=== PATIENT | male | born 1930 | race Hispanic/Latino ===

== ENCOUNTER 2016-08-06 16:15 | Inpatient (IN) | payer MEDICARE ==
[2016-08-06 17:12] LABS: Eosinophils % (Auto) 1.3 % (0.0-4.3); Mean Corpuscular HGB Conc 33 % (32-34); Mean Corpuscular Hemoglobin 31 pg (28-32); Mean Corpuscular Volume 94 fl (84-94); Platelet Count 285 K/mm3 (140-440); Red Cell Distribution Width 15.1 % (13.2-15.2); White Blood Count 8.5 K/mm3 (4.5-11.0)
[2016-08-06 17:42] LABS: BUN/Creatinine Ratio 18.88; Blood Urea Nitrogen 17 mg/dL (9-20); Calcium 9.1 mg/dL (8.4-10.2); Carbon Dioxide 25 mmol/L (22-30); Chloride 105.8 mmol/L (98-107); Glucose 92 mg/dL (75-100); Potassium 4.4 mmol/L (3.6-5.0); Sodium 143 mmol/L (137-145)
[2016-08-06] MEDS ORDERED: XYLOCAINE 1% 20 mL ONE (17:49)
--- NOTE | 2016-08-06 17:55 | Emergency Department Report ---
HPI - General Chief Complaint: Dyspnea/Respdistress Time Seen by Provider: 08/06/16 17:41 - HPI HPI: Room 18 The patient is an 85-year-old male presenting with chief complaint of shortness of breath. When asked when they come to the emergency department patient states "I wasn't breathing good." When asked when it began the patient states "a few weeks ago." The patient had a chest x-ray performed at half-way which was read as "50% pneumothorax in the left thorax immediate clinical attention and intervention required." Location: Lungs Duration: [see above] Quality: Shortness of Breath Severity: Moderate Modifying factors: [see above] Context: [see above] Mode of transportation: [not driving] ED Past Medical Hx - Past Medical History Previous Medical History?: Yes Hx Seizures: Yes Hx Psychiatric Treatment: Yes (Depression) Hx COPD: Yes - Surgical History Past Surgical History?: No - Family History Family history: no significant - Social History Smoking Status: Former Smoker Substance Use Type: None ED Review of Systems ROS: Stated complaint: POSSIBLE PNEUMOTHORAX Other details as noted in HPI Comment: All other systems reviewed and negative Constitutional: denies: chills, fever Eyes: denies: eye pain, eye discharge, vision change ENT: denies: ear pain, throat pain Respiratory: shortness of breath Cardiovascular: denies: chest pain, palpitations Endocrine: no symptoms reported Gastrointestinal: denies: abdominal pain, nausea, diarrhea Genitourinary: denies: urgency, dysuria Musculoskeletal: denies: back pain, joint swelling, arthralgia Skin: denies: rash, lesions Neurological: denies: headache, weakness, paresthesias Psychiatric: denies: anxiety, depression Hematological/Lymphatic: denies: easy bleeding, easy bruising Physical Exam - Physical Exam Physical Exam: GENERAL: The patient is a thin elderly male lying on stretcher appearing slightly labored respirations HEENT: Normocephalic. Atraumatic. Extraocular motions are intact. Patient has moist mucous membranes. NECK: Supple. Trachea midline CHEST/LUNGS: Slightly decreased breath sounds on the left. Increased work of breathing HEART/CARDIOVASCULAR: Regular. There is no tachycardia. There is no gallop rub or murmur. ABDOMEN: Abdomen is soft, nontender. Patient has normal bowel sounds. There is no abdominal distention. SKIN: There is no rash. There is no edema. There is no diaphoresis. NEURO: The patient is awake, alert, and oriented. The patient is cooperative. The patient has normal speech MUSCULOSKELETAL: There is no evidence of acute injury. - Chest Tube Chest Tube Location: forth interspace Size of Lithuanian Tube (cm): 0 (Heimlich) Chest Tube Procedure: betadine prep Anesthesia: 1% Lidocaine w/ Epi Volume Anesthetic (ccs): 4 [place] of Air [place]: Yes Number of Attempts: 1 Tube Sutured to Skin: Yes Post Procedure CXR?: Yes ED Medical Decision Making - Lab Data Result diagrams: 08/06/16 16:42 08/06/16 16:42 Laboratory Tests 08/06/16 08/06/16 16:42 16:42 WBC 8.5 RBC 4.80 Hgb 15.0 Hct 45.0 MCV 94 MCH 31 MCHC 33 RDW 15.1 Plt Count 285 Lymph % (Auto) 14.1 [place] % (Auto) 11.0 H Eos % (Auto) 1.3 Baso % (Auto) 1.0 Lymph # 1.2 [place] # 0.9 H Eos # 0.1 Baso # 0.1 Seg Neutrophils % 72.6 H Seg Neutrophils # 6.1 Sodium 143 Potassium 4.4 Chloride 105.8 Carbon Dioxide 25 Anion Gap 17 BUN 17 Creatinine 0.9 Estimated GFR > 60 BUN/Creatinine Ratio 18.88 Glucose 92 Calcium 9.1 Troponin T < 0.010 - Radiology Data Radiology results: image reviewed (chest x-ray #1, chest x-ray #2) interpreted by me: Chest x-ray #1-large left pneumothorax Chest x-ray #2-Heimlich enters into the left chest and orients downward. Improvement/resolution of left pneumothorax. - Differential Diagnosis spontaneous pneumothorax Critical Care Time: Yes Critical care time in (mins) excluding proc time.: 30 Critical care attestation.: If time is entered above; I have spent that time in minutes in the direct care of this critically ill patient, excluding procedure time. ED Disposition Clinical Impression: Spontaneous pneumothorax, Shortness of breath Disposition: OP ADMITTED IP TO THIS HOSP Is pt being admited?: Yes Does the pt Need Aspirin: No Condition: Serious Referrals: PRIMARY CARE, [Primary Care Provider] - 3-5 Days Time of Disposition: 19:08 (hospitalist paged)
[2016-08-06 18:13] LABS: Anion Gap 17 mmol/L
[2016-08-06] MEDS ORDERED: XYLOCAINE 1%/ EPI 1:100,000 INFILTRATI ONE (18:14)
[2016-08-06] MEDS ORDERED: AMIDATE IV ONE ×2 (18:15→18:53)
[2016-08-06] MEDS ORDERED: ATROVENT IH SCH (20:00)
[2016-08-06] MEDS ORDERED: PROVENTIL IH SCH (20:00)
--- NOTE | 2016-08-06 21:34 | Admit Criteria Form ---
Admission Criteria Documentation: PNEUMOTHORAX Clinical Indications for Admission to Inpatient Care (Place 'X' for any and all applicable criteria): Admission for ANY ONE of the following (1),(2): [ ]I. Pneumothorax caused by associated lung disease (eg, COPD, cystic fibrosis, lung cancer, AIDS)(6): [ ]II. Recurrent episode of pneumothorax9 [ ]III. Traumatic pneumothorax (10)(11)(12) [ ]IV. Tension pneumothorax [ ]V. Hypotension [ ]. Respiratory distress [ ]VII. Pneumothorax exacerbating significant comorbidity (eg, heart failure) [ X]VIII. Inpatient admission required rather than observation care (see Pneumothorax: Observation Care guideline as appropriate) because of ANY ONE of the following (13)(14) [X ]a) Symptomatic pneumothorax that is progressive or persistent [ ]b) Infection identified (eg, pneumonia) that requires inpatient management [ ]c) Severe pain requiring acute inpatient management [ ]d) Supplemental O2 or respiratory therapy for over 24 hrs that are performable only in acute inpatient setting [ ]e) Chest tube placement with active evacuation (eg, suction, drainage) (15) [ ]f) Epidural analgesia [ ]g) Other condition, treatment or monitoring requiring inpatient admission Extended stay beyond goal length of stay may be needed for (24) [ ]a) Secondary pneumothorax [ ]b) Pneumothorax assoc with trauma(eg, multiple fractured ribs) [ ]c) Recurrent episode of primary spontaneous pneumothorax. [ ]d) Older patients [ ]e) Tension pneumothorax [ ]f) Pulmonary edema [ ]g) Persistent air leak The original [employer] content created by [employer] has been revised. The portions of the content which have been revised are identified through the use of italic text or in bold, and [facility] has neither reviewed nor approved the modified material. All other unmodified content is copyright [employer]. Please see references footnoted in the original [employer] edition 2016 Admission Criteria Met: Yes
[2016-08-06 21:53] LABS: Alanine Aminotransferase 9 units/L (7-56); Albumin 2.5 g/dL (3.9-5); Albumin/Globulin Ratio 0.6 %; Alkaline Phosphatase 80 units/L (35-129); Bilirubin,Total 0.5 mg/dL (0.1-1.2); Blood Urea Nitrogen 16 mg/dL (9-20); Calcium 8.3 mg/dL (8.4-10.2); Carbon Dioxide 19 mmol/L (22-30); Chloride 103.4 mmol/L (98-107); Glucose 92 mg/dL (75-100); Potassium 4.8 mmol/L (3.6-5.0); Sodium 135 mmol/L (137-145); Total Protein 6.9 g/dL (6.3-8.2)
[2016-08-06 22:33] LABS: Anion Gap 17 mmol/L
--- NOTE | 2016-08-07 | History and Physical Report ---
History of Present Illness Date of examination: 08/06/16 Date of admission: 08/06/16 19:50 Chief complaint: Shortness of breath. History of present illness: Patient is an 85-year-old gentleman was a reasonable risk to nursing facility. Started having cough with shortness of breath a few days prior. Chest x-ray was done. 50% pneumothorax identified in the left lung. We will brought emergency department of [facility] Shows left-sided pneumothorax post chest tube was placed. Carotids on the windowsill. Shortness of breath improved. Hypoxia that was observed on admission improved also. Past History Past Medical History: COPD, other (dementia, depression) Past Surgical History: No surgical history Social history: denies: smoking, alcohol abuse, IV drug use Family history: hypertension Medications and Allergies Allergies Allergy/AdvReac Type Severity Reaction Status Date / Time No Known Allergies Allergy Unverified 08/06/16 16:22 Home Medications Medication Instructions Recorded Confirmed Last Taken Type Calcium Carbonate/Vitamin D3 1 tab PO TID 08/06/16 08/06/16 Unknown History [Calcium 500 + D Tablet] Depakote ER 125 mg PO BID 08/06/16 08/06/16 Unknown History Fluticasone/Vilanterol [Breo 2 puff INHALATION DAILY 08/06/16 08/06/16 Unknown History Ellipta 100-25 Mcg INH] LORazepam [Ativan] 1 tab PO Q8H PRN 08/06/16 08/06/16 Unknown History Memantine HCl [Namenda] 10 mg PO BID 08/06/16 08/06/16 Unknown History Mirtazapine 15 mg PO QHS 08/06/16 08/06/16 Unknown History Multivitamin with Iron 1 each PO DAILY 08/06/16 08/06/16 Unknown History [Multivitamins with Iron] Potassium Chloride [K-Dur] 20 meq PO BID 08/06/16 08/06/16 Unknown History amLODIPine [Norvasc] 10 mg PO DAILY 08/06/16 08/06/16 Unknown History Active Meds: Active Medications Albuterol (Proventil) 2.5 mg IH Q6HRT [facility] Last Admin: 08/06/16 22:49 Dose: Not Given Enoxaparin Sodium (Lovenox) 40 mg SUB-Q QDAY [facility] Azithromycin 500 mg/ Sodium (Chloride) 250 mls @ 250 mls/hr IV Q24HR [facility] PRN Reason: Protocol Ipratropium [place] (Atrovent) 0.5 mg IH Q6HRT [facility] Last Admin: 08/06/16 22:49 Dose: Not Given Methylprednisolone Sodium Succinate (Solu-Medrol) 40 mg IV Q8HR [facility] Last Admin: 08/06/16 22:29 Dose: 40 mg Review of Systems Constitutional: weight loss Ears, nose, mouth and throat: ear pain, no ear discharge, no tinnitis, no decreased hearing Cardiovascular: chest pain, no orthopnea, no palpitations, no rapid/irregular heart beat, no edema Respiratory: no cough, no cough with sputum, no excessive sputum, no hemoptysis Gastrointestinal: no nausea, no vomiting, no diarrhea Neurological: migraines, no headaches, no convulsions, no aphasia Psychiatric: no anxiety, no memory loss Endocrine: no cold intolerance, no heat intolerance, no polyphagia, no excessive thirst Hematologic/Lymphatic: no easy bruising, no easy bleeding Exam - Constitutional Vitals: Temp Pulse Resp BP Pulse Ox 79 20 100/43 92 08/06/16 23:00 08/06/16 23:00 08/06/16 23:00 08/06/16 23:00 General appearance: Present: mild distress - EENT Eyes: Present: PERRL, EOM intact ENT: no hearing intact, no clear oral mucosa - Neck Neck: Present: supple, normal ROM - Respiratory Respiratory: bilateral: diminished (on the left), rales, rhonchi - Cardiovascular Rhythm: regular Heart Sounds: Present: S1 & S2 - Extremities Extremities: no ischemia, pulses intact, No edema - Abdominal General gastrointestinal: Present: soft, non-tender, non-distended - Integumentary Integumentary: Present: clear, warm - Musculoskeletal Musculoskeletal: generalized weakness - Psychiatric Psychiatric: other (consult was) - Neurologic Neurologic: CNII-XII intact Results - Labs CBC & Chem 7: 08/06/16 16:42 08/06/16 20:16 Labs: Abnormal lab results 08/06/16 Range/Units 20:16 Sodium 135 L D (137-145) mmol/L Carbon Dioxide 19 L (22-30) mmol/L Calcium 8.3 L (8.4-10.2) mg/dL Albumin 2.5 L (3.9-5) g/dL Assessment and Plan - Patient Problems (1) Shortness of breath Diagnosis Date: 08/07/16 Current Visit: Yes Status: Acute Plan to address problem: Commence albuterol Atrovent. (2) Spontaneous pneumothorax Diagnosis Date: 08/07/16 Current Visit: Yes Status: Acute Plan to address problem: Left chest tube inserted and connected to under water seal (3) COPD with exacerbation Diagnosis Date: 08/07/16 Current Visit: Yes Status: Acute Plan to address problem: Continue with bronchodilators. Will add Levaquin 500 mg IV daily
[2016-08-07] MEDS ORDERED: PROVENTIL IH PRN (01:53)
[2016-08-07] MEDS: DUONEB 0.5 MG-3 MG/3 ML SOLN IH SCH ×3 (02:30→13:45)
[2016-08-07] MEDS ORDERED: CALCIUM CARBONATE PO SCH (08:00)
[2016-08-07] MEDS ORDERED: VITAMIN D3 PO SCH (08:00)
[2016-08-07] MEDS: PULMICORT IH SCH (08:22)
[2016-08-07] MEDS: BROVANA NEBU IH SCH (08:22)
--- NOTE | 2016-08-07 09:24 | XRay Report ---
AP CHEST AT 1652 HOURS: HISTORY: Difficulty in breathing, pneumothorax. FINDINGS: This exam is just presented to me for interpretation. There are no previous at this facility. A large left pneumothorax is identified which measures up to 5-6 cm in thickness at the left lung base. The pneumothorax is estimated at 40%. No right pneumothorax. Moderate bibasilar atelectatic changes are noted. There may be a small right pleural effusion. Heart size and pulmonary vascularity are within normal limits. IMPRESSION: 1. Large left pneumothorax, as described. 2. Bibasilar atelectasis. 3. Possible small right pleural effusion. These findings were apparently recognized by the ER physician although there are no notes in the PACS system.
--- NOTE | 2016-08-07 09:24 | XRay Report ---
AP CHEST AT 1857 HOURS: HISTORY: Left pneumothorax, left chest tube placement. FINDINGS: A Heimlich chest tube has been inserted since 1652 hours which terminates at the level of the left hemidiaphragm. There is complete or near-complete resolution of the left pneumothorax. Bibasilar atelectasis and small right pleural effusion are unchanged. Heart size remains within normal limits. IMPRESSION: Left chest tube placement, as described, with no significant residual left pneumothorax.
[2016-08-07] MEDS ORDERED: ZITHROMAX 500 MG in NACL 0.9% 250ML 250 ML IV SCH (10:00)
[2016-08-07] MEDS ORDERED: DEPAKOTE 125 MG PO SCH (10:00)
[2016-08-07] MEDS ORDERED: LEVAQUIN 500MG/100ML 100 ML IV SCH (10:00)
[2016-08-07] MEDS ORDERED: NON-FORMULARY (Memantine Hcl [Namenda] 10 MG) PO SCH (10:00)
[2016-08-07] MEDS ORDERED: FLUTICASONE INHALATION SCH (10:00)
[2016-08-07] MEDS ORDERED: LEVAQUIN 500MG/100ML 100 ML IV ONE (10:00)
[2016-08-07] MEDS ORDERED: VILANTEROL INHALATION SCH (10:00)
[2016-08-07] MEDS: OYSCO D 500 MG-200 UNIT PO SCH ×3 (10:04→22:16)
[2016-08-07] MEDS: NAMENDA XR PO SCH (10:05)
[2016-08-07] MEDS: LOVENOX SUB-Q SCH ×2 (10:06→19:53)
--- NOTE | 2016-08-07 13:24 | Consultation ---
History of Present Illness Consult date: 08/07/16 Requesting physician: TERI VARGAS Reason for consult: pneumothorax History of present illness: 85 yo admitted with increased SOB and some L sided chest pain. He is a profoundly poor historian. States SOB is better s/p L sided chest pain placed in ED. Denies fevers, chills, cough, sputum. Active Medications Albuterol (Proventil) 2.5 mg IH Q3HRT PRN PRN Reason: Shortness Of Breath Albuterol/Ipratropium (Duoneb 0.5 Mg-3 Mg/3 Ml Soln) 1 ampul IH Q6HRT [facility] Last Admin: 08/07/16 13:45 Dose: 1 ampul Arformoterol Tartrate (Brovana Nebu) 15 mcg IH Q12HRT [facility] Last Admin: 08/07/16 08:22 Dose: Not Given Budesonide (Pulmicort) 0.5 mg IH Q12HRT [facility] Last Admin: 08/07/16 08:22 Dose: 0.5 mg Calcium/Vitamin D ([place] D 500 Mg-200 Unit) 1 each PO TID [facility] Last Admin: 08/07/16 14:12 Dose: 1 each Divalproex Sodium (Depakote Dr) 125 mg PO BID [facility] Last Admin: 08/07/16 10:05 Dose: 125 mg Enoxaparin Sodium (Lovenox) 40 mg SUB-Q QDAY [facility] Last Admin: 08/07/16 10:06 Dose: 40 mg Levofloxacin/Dextrose (Levaquin 250mg/50ml) 50 mls @ 50 mls/hr IV Q24HR [facility] PRN Reason: Protocol Memantine (Namenda Xr) 28 mg PO DAILY [facility] Last Admin: 08/07/16 10:05 Dose: 28 mg Methylprednisolone Sodium Succinate (Solu-Medrol) 40 mg IV Q8HR [facility] Last Admin: 08/07/16 14:13 Dose: 40 mg Mirtazapine (Remeron) 15 mg PO QHS [facility] Past History Past Medical History: COPD, other (dementia, depression) Past Surgical History: No surgical history Social history: other (Resided in NH/SNF). denies: smoking, alcohol abuse, prescription drug abuse, IV drug use Family history: hypertension Medications and Allergies Allergies Allergy/AdvReac Type Severity Reaction Status Date / Time No Known Allergies Allergy Unverified 08/06/16 16:22 Home Medications Medication Instructions Recorded Confirmed Last Taken Type Calcium Carbonate/Vitamin D3 1 tab PO TID 08/06/16 08/06/16 Unknown History [Calcium 500 + D Tablet] Depakote ER 125 mg PO BID 08/06/16 08/06/16 Unknown History Fluticasone/Vilanterol [Breo 2 puff INHALATION DAILY 08/06/16 08/06/16 Unknown History Ellipta 100-25 Mcg INH] LORazepam [Ativan] 1 tab PO Q8H PRN 08/06/16 08/06/16 Unknown History Memantine HCl [Namenda] 10 mg PO BID 08/06/16 08/06/16 Unknown History Mirtazapine 15 mg PO QHS 08/06/16 08/06/16 Unknown History Multivitamin with Iron 1 each PO DAILY 08/06/16 08/06/16 Unknown History [Multivitamins with Iron] Potassium Chloride [K-Dur] 20 meq PO BID 08/06/16 08/06/16 Unknown History amLODIPine [Norvasc] 10 mg PO DAILY 08/06/16 08/06/16 Unknown History Active Meds: Active Medications Albuterol (Proventil) 2.5 mg IH Q3HRT PRN PRN Reason: Shortness Of Breath Albuterol/Ipratropium (Duoneb 0.5 Mg-3 Mg/3 Ml Soln) 1 ampul IH Q6HRT [facility] Last Admin: 08/07/16 08:21 Dose: 1 ampul Arformoterol Tartrate (Brovana Nebu) 15 mcg IH Q12HRT [facility] Last Admin: 08/07/16 08:22 Dose: Not Given Budesonide (Pulmicort) 0.5 mg IH Q12HRT [facility] Last Admin: 08/07/16 08:22 Dose: 0.5 mg Calcium/Vitamin D ([place]ys[place] D 500 Mg-200 Unit) 1 each PO TID [facility] Last Admin: 08/07/16 10:04 Dose: 1 each Divalproex Sodium (Depakote Dr) 125 mg PO BID [facility] Last Admin: 08/07/16 10:05 Dose: 125 mg Enoxaparin Sodium (Lovenox) 40 mg SUB-Q QDAY [facility] Last Admin: 08/07/16 10:06 Dose: 40 mg Levofloxacin/Dextrose (Levaquin 250mg/50ml) 50 mls @ 50 mls/hr IV Q24HR [facility] PRN Reason: Protocol Memantine (Namenda Xr) 28 mg PO DAILY [facility] Last Admin: 08/07/16 10:05 Dose: 28 mg Methylprednisolone Sodium Succinate (Solu-Medrol) 40 mg IV Q8HR [facility] Last Admin: 08/07/16 06:12 Dose: 40 mg Mirtazapine (Remeron) 15 mg PO QHS [facility] Review of Systems All systems: negative (Neg x 10 systems except as noted in HPI) Physical Examination Vital signs: Vital Signs Pulse Ox 94 08/06/16 16:20 General appearance: no acute distress, alert, other (cachectic) Eyes: non-icteric ENT: oropharynx moist Neck: supple Effort: normal Ascultation: Bilateral: diminished breath sounds (bases) Cardiovascular: regular rate and rhythm (no mrg) Gastrointestinal: normoactive bowel sounds, soft, non-tender, non-distended Integumentary: normal Extremities: no cyanosis, no edema Musculoskeletal: no deformities normal mental status (Appears confused; alert), non-focal exam, pupils equal and round mood appropriate, affect normal Results - Laboratory Findings CBC and BMP: 08/07/16 15:44 08/06/16 20:16 Abnormal lab findings: Abnormal Labs 08/06/16 20:16 Sodium 135 L D Carbon Dioxide 19 L Calcium 8.3 L Albumin 2.5 L - Diagnostic Findings Chest x-ray: report reviewed, image reviewed Assessment and Plan Imp: 1. COPD/centrilobular emphysema per history, with ? exacerbation 2. Spontaneous PTX, presumed due to COPD 3. Cachexia 4. Dementia, ? Alzheimer's 5. Pleural effusions, r/o CHF/pulm HTN Rec: 1. Leave CT to suction 2. CXR in AM 3. Taper steroids 4. Pleural effusions noted on CXR; check BNP and Echo 5. Consider nutrition evaluation 6. Will follow Plan of care reviewed w/ patient, he understands/agrees Thanks kindly for the consult.
[2016-08-07 16:06] LABS: Hematocrit 41.1 % (35.5-45.6); Hemoglobin 13.4 gm/dl (11.8-15.2); Mean Corpuscular HGB Conc 33 % (32-34); Mean Corpuscular Hemoglobin 31 pg (28-32); Mean Corpuscular Volume 93 fl (84-94); Platelet Count 258 K/mm3 (140-440); Red Blood Count 4.41 M/mm3 (3.65-5.03); Red Cell Distribution Width 14.9 % (13.2-15.2); White Blood Count 7.3 K/mm3 (4.5-11.0)
--- NOTE | 2016-08-07 16:55 | Progress Note ---
Assessment and Plan Assessment and plan: 1. Spontaneous pneumothorax Left chest tube inserted and connected to under water seal serial cxr to assess for resolution (2) COPD with exacerbation Continue with bronchodilators, steroids and abx. 3. Bradycardia obtain 12 EKG, cardiology consult History Interval history: Denies sob, wheezing or cough Hospitalist Physical - Physical exam Narrative exam: General: Patient appears well in no distress HEENT: MMM, EOMI cardiac: S1-S2 heard lungs: Clear to auscultation abdomen: soft, nontender, nondistended bowel sounds positive extremities: no edema clubbing or cyanosis Skin: no rash or lesion Neuro: no focal deficit Psych: appropriate behavior and mood, cognition intact - Constitutional Vitals: Temp Pulse Resp BP Pulse Ox 97.5 F L 45 L 18 126/58 98 08/07/16 13:36 08/07/16 13:57 08/07/16 13:57 08/07/16 13:36 08/07/16 13:36 General appearance: Present: mild distress Results - Labs CBC & Chem 7: 08/07/16 15:44 08/06/16 20:16 Labs: Laboratory Last Values WBC 7.3 K/mm3 (4.5-11.0) 08/07/16 15:44 RBC 4.41 M/mm3 (3.65-5.03) 08/07/16 15:44 Hgb 13.4 gm/dl (11.8-15.2) 08/07/16 15:44 Hct 41.1 % (35.5-45.6) 08/07/16 15:44 MCV 93 fl (84-94) 08/07/16 15:44 MCH 31 pg (28-32) 08/07/16 15:44 MCHC 33 % (32-34) 08/07/16 15:44 RDW 14.9 % (13.2-15.2) 08/07/16 15:44 Plt Count 258 K/mm3 (140-440) 08/07/16 15:44 Lymph % (Auto) 14.1 % (13.4-35.0) 08/06/16 16:42 [place] % (Auto) 11.0 % (0.0-7.3) H 08/06/16 16:42 Eos % (Auto) 1.3 % (0.0-4.3) 08/06/16 16:42 Baso % (Auto) 1.0 % (0.0-1.8) 08/06/16 16:42 Lymph # 1.2 K/mm3 (1.2-5.4) 08/06/16 16:42 [place] # 0.9 K/mm3 (0.0-0.8) H 08/06/16 16:42 Eos # 0.1 K/mm3 (0.0-0.4) 08/06/16 16:42 Baso # 0.1 K/mm3 (0.0-0.1) 08/06/16 16:42 Seg Neutrophils % [employer] 08/07/16 15:44 Seg Neutrophils # 6.1 K/mm3 (1.8-7.7) 08/06/16 16:42 Sodium 135 mmol/L (137-145) L D 08/06/16 20:16 Potassium 4.8 mmol/L (3.6-5.0) 08/06/16 20:16 Chloride 103.4 mmol/L (98-107) 08/06/16 20:16 Carbon Dioxide 19 mmol/L (22-30) L 08/06/16 20:16 Anion Gap 17 mmol/L 08/06/16 20:16 BUN 16 mg/dL (9-20) 08/06/16 20:16 Creatinine 0.8 mg/dL (0.8-1.5) 08/06/16 20:16 Estimated GFR > 60 ml/min 08/06/16 20:16 BUN/Creatinine Ratio 20.00 % 08/06/16 20:16 Glucose 92 mg/dL (75-100) 08/06/16 20:16 Calcium 8.3 mg/dL (8.4-10.2) L 08/06/16 20:16 Total Bilirubin 0.5 mg/dL (0.1-1.2) 08/06/16 20:16 AST 40 units/L (5-40) 08/06/16 20:16 ALT 9 units/L (7-56) 08/06/16 20:16 Alkaline Phosphatase 80 units/L (35-129) 08/06/16 20:16 Troponin T < 0.010 ng/mL (0.00-0.029) 08/06/16 16:42 Total Protein 6.9 g/dL (6.3-8.2) 08/06/16 20:16 Albumin 2.5 g/dL (3.9-5) L 08/06/16 20:16 Albumin/Globulin Ratio 0.6 % 08/06/16 20:16
[2016-08-07 17:00] LABS: Basophils % (Manual) 0 % (0.0-1.8); Blastocytes % (Manual) 0 %; Eosinophils % (Manual) 0 % (0.0-4.3)
[2016-08-07 17:01] LABS: Anisocytosis 1+; Giant Platelets Few; Ovalocytes 1+; Poikilocytosis 1+
[2016-08-07 17:02] LABS: Diff Status Complete
[2016-08-07] MEDS: REMERON PO SCH (22:16)
[2016-08-08] MEDS: DUONEB 0.5 MG-3 MG/3 ML SOLN IH SCH ×5 (02:19→20:34)
[2016-08-08] MEDS: BROVANA NEBU IH SCH ×3 (02:33→20:34)
[2016-08-08] MEDS: PULMICORT IH SCH ×3 (02:33→20:34)
[2016-08-08] MEDS ORDERED: LEVAQUIN 250MG/50ML 50 ML IV SCH (10:00)
[2016-08-08] MEDS: OYSCO D 500 MG-200 UNIT PO SCH ×3 (10:16→22:19)
[2016-08-08] MEDS: LOVENOX SUB-Q SCH (10:16)
[2016-08-08] MEDS: NAMENDA XR PO SCH (10:17)
--- NOTE | 2016-08-08 11:19 | Progress Note ---
Assessment and Plan Assessment and plan: 1. Spontaneous pneumothorax Left chest tube inserted and connected to under water seal serial cxr to assess for resolution, Input from Associate Music Professor, Dr Caballero appreciated, keep CT in place for now (2) COPD with exacerbation Continue with bronchodilators, taper steroids and abx. 3. Bradycardia obtain 12 EKG, cardiology consult 4. Bilateral pleural effusions fup echo, 5. 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 History Interval history: Denies sob, wheezing or cough Hospitalist Physical - Physical exam Narrative exam: General: Patient appears well in no distress, cachectic HEENT: MMM, EOMI cardiac: S1-S2 heard lungs: Clear to auscultation abdomen: soft, nontender, nondistended bowel sounds positive extremities: no edema clubbing or cyanosis Skin: no rash or lesion Neuro: no focal deficit Psych: appropriate behavior and mood, cognition intact - Constitutional Vitals: Temp Pulse Resp BP Pulse Ox 97.9 F 24 L 24 106/55 96 08/08/16 08:21 08/08/16 08:21 08/08/16 08:21 08/08/16 08:21 08/08/16 08:21 General appearance: Present: mild distress Results - Labs CBC & Chem 7: 08/07/16 15:44 08/06/16 20:16 Labs: Laboratory Last Values WBC 7.3 K/mm3 (4.5-11.0) 08/07/16 15:44 RBC 4.41 M/mm3 (3.65-5.03) 08/07/16 15:44 Hgb 13.4 gm/dl (11.8-15.2) 08/07/16 15:44 Hct 41.1 % (35.5-45.6) 08/07/16 15:44 MCV 93 fl (84-94) 08/07/16 15:44 MCH 31 pg (28-32) 08/07/16 15:44 MCHC 33 % (32-34) 08/07/16 15:44 RDW 14.9 % (13.2-15.2) 08/07/16 15:44 Plt Count 258 K/mm3 (140-440) 08/07/16 15:44 Lymph % (Auto) 14.1 % (13.4-35.0) 08/06/16 16:42 [place] % (Auto) 11.0 % (0.0-7.3) H 08/06/16 16:42 Eos % (Auto) 1.3 % (0.0-4.3) 08/06/16 16:42 Baso % (Auto) 1.0 % (0.0-1.8) 08/06/16 16:42 Lymph # 1.2 K/mm3 (1.2-5.4) 08/06/16 16:42 [place] # 0.9 K/mm3 (0.0-0.8) H 08/06/16 16:42 Eos # 0.1 K/mm3 (0.0-0.4) 08/06/16 16:42 Baso # 0.1 K/mm3 (0.0-0.1) 08/06/16 16:42 Add Manual Diff Complete 08/07/16 15:44 Total Counted 100 08/07/16 15:44 Seg Neutrophils % Core Manager 08/07/16 15:44 Seg Neuts % (Manual) 95.0 % (40.0-70.0) H 08/07/16 15:44 Band Neutrophils % 0 % 08/07/16 15:44 Lymphocytes % (Manual) 4.0 % (13.4-35.0) L 08/07/16 15:44 Reactive Lymphs % (Man) 0 % 08/07/16 15:44 Monocytes % (Manual) 1.0 % (0.0-7.3) 08/07/16 15:44 Eosinophils % (Manual) 0 % (0.0-4.3) 08/07/16 15:44 Basophils % (Manual) 0 % (0.0-1.8) 08/07/16 15:44 Metamyelocytes % 0 % 08/07/16 15:44 Myelocytes % 0 % 08/07/16 15:44 Promyelocytes % 0 % 08/07/16 15:44 Blast Cells % 0 % 08/07/16 15:44 Nucleated RBC % Not Reportable 08/07/16 15:44 Seg Neutrophils # 6.1 K/mm3 (1.8-7.7) 08/06/16 16:42 Seg Neutrophils # Man 6.9 K/mm3 (1.8-7.7) 08/07/16 15:44 Band Neutrophils # 0.0 K/mm3 08/07/16 15:44 Lymphocytes # (Manual) 0.3 K/mm3 (1.2-5.4) L 08/07/16 15:44 Abs React Lymphs (Man) 0.0 K/mm3 08/07/16 15:44 Monocytes # (Manual) 0.1 K/mm3 (0.0-0.8) 08/07/16 15:44 Eosinophils # (Manual) 0.0 K/mm3 (0.0-0.4) 08/07/16 15:44 Basophils # (Manual) 0.0 K/mm3 (0.0-0.1) 08/07/16 15:44 Metamyelocytes # 0.0 K/mm3 08/07/16 15:44 Myelocytes # 0.0 K/mm3 08/07/16 15:44 Promyelocytes # 0.0 K/mm3 08/07/16 15:44 Blast Cells # 0.0 K/mm3 08/07/16 15:44 WBC Morphology Not Reportable 08/07/16 15:44 Hypersegmented Neuts Not Reportable 08/07/16 15:44 Hyposegmented Neuts Not Reportable 08/07/16 15:44 Hypogranular Neuts Not Reportable 08/07/16 15:44 Smudge Cells Not Reportable 08/07/16 15:44 Toxic Granulation Not Reportable 08/07/16 15:44 Toxic Vacuolation Not Reportable 08/07/16 15:44 Dohle Bodies Not Reportable 08/07/16 15:44 Pelger-Huet Anomaly Not Reportable 08/07/16 15:44 Kamari Rods Not Reportable 08/07/16 15:44 Platelet Estimate Appears normal 08/07/16 15:44 Clumped Platelets Not Reportable 08/07/16 15:44 Plt Clumps, EDTA Not Reportable 08/07/16 15:44 Large Platelets Not Reportable 08/07/16 15:44 Giant Platelets Few 08/07/16 15:44 Platelet Satelliting Not Reportable 08/07/16 15:44 Plt Morphology Comment Not Reportable 08/07/16 15:44 RBC Morphology Not Reportable 08/07/16 15:44 Dimorphic RBCs Not Reportable 08/07/16 15:44 Polychromasia Not Reportable 08/07/16 15:44 Hypochromasia Not Reportable 08/07/16 15:44 Poikilocytosis 1+ 08/07/16 15:44 Anisocytosis 1+ 08/07/16 15:44 Microcytosis Not Reportable 08/07/16 15:44 Macrocytosis Not Reportable 08/07/16 15:44 Spherocytes Not Reportable 08/07/16 15:44 Pappenheimer Bodies Not Reportable 08/07/16 15:44 Sickle Cells Not Reportable 08/07/16 15:44 Target Cells Not Reportable 08/07/16 15:44 Tear Drop Cells Not Reportable 08/07/16 15:44 Ovalocytes 1+ 08/07/16 15:44 Helmet Cells Not Reportable 08/07/16 15:44 [place] Bodies Not Reportable 08/07/16 15:44 [place] Rings Not Reportable 08/07/16 15:44 [place] Cells Not Reportable 08/07/16 15:44 Bite Cells Not Reportable 08/07/16 15:44 Crenated Cell Not Reportable 08/07/16 15:44 Elliptocytes Not Reportable 08/07/16 15:44 Acanthocytes (Spur) Not Reportable 08/07/16 15:44 Rouleaux Not Reportable 08/07/16 15:44 Hemoglobin C Crystals Not Reportable 08/07/16 15:44 Schistocytes Not Reportable 08/07/16 15:44 Malaria parasites Not Reportable 08/07/16 15:44 [place] Bodies Not Reportable 08/07/16 15:44 Hem Pathologist Commnt No 08/07/16 15:44 Sodium 135 mmol/L (137-145) L D 08/06/16 20:16 Potassium 4.8 mmol/L (3.6-5.0) 08/06/16 20:16 Chloride 103.4 mmol/L (98-107) 08/06/16 20:16 Carbon Dioxide 19 mmol/L (22-30) L 08/06/16 20:16 Anion Gap 17 mmol/L 08/06/16 20:16 BUN 16 mg/dL (9-20) 08/06/16 20:16 Creatinine 0.8 mg/dL (0.8-1.5) 08/06/16 20:16 Estimated GFR > 60 ml/min 08/06/16 20:16 BUN/Creatinine Ratio 20.00 % 08/06/16 20:16 Glucose 92 mg/dL (75-100) 08/06/16 20:16 Calcium 8.3 mg/dL (8.4-10.2) L 08/06/16 20:16 Total Bilirubin 0.5 mg/dL (0.1-1.2) 08/06/16 20:16 AST 40 units/L (5-40) 08/06/16 20:16 ALT 9 units/L (7-56) 08/06/16 20:16 Alkaline Phosphatase 80 units/L (35-129) 08/06/16 20:16 Troponin T < 0.010 ng/mL (0.00-0.029) 08/06/16 16:42 Total Protein 6.9 g/dL (6.3-8.2) 08/06/16 20:16 Albumin 2.5 g/dL (3.9-5) L 08/06/16 20:16 Albumin/Globulin Ratio 0.6 % 08/06/16 20:16
--- NOTE | 2016-08-08 14:45 | XRay Report ---
AP CHEST: HISTORY: Follow-up pneumothorax. FINDINGS: The left chest tube remains in similar position comparing to the exam 2 days ago. No recurrent pneumothorax is visualized. Moderate right pleural effusion is unchanged. Otherwise, the lungs are clear. Heart size remains within normal limits. No acute process is noted. Impression: No significant change.
--- NOTE | 2016-08-08 18:50 | Progress Note ---
Assessment and Plan Imp: 1. COPD/centrilobular emphysema per history, with ? exacerbation 2. Spontaneous PTX, presumed due to COPD 3. Cachexia 4. Dementia, ? Alzheimer's 5. Pleural effusions, r/o CHF/pulm HTN Rec: 1. No air leak in pleurovac; place to CT to water seal 2. CXR in AM 3. Tapered steroids 4. Pleural effusions noted on CXR; check BNP and Echo (patient refusing) 5. Consider nutrition evaluation 6. Will follow; if he continues to refuse care can d/c back to SNF once we can get the CT out Plan of care reviewed w/ patient, he understands/agrees Subjective Date of service: 08/08/16 Principal diagnosis: PTX Interval history: No events. Patient being difficult. Refusing treatment including Echo and CXR ( able to get w/ restraints). Confused. Doesn't know he has a chest tube in or why he is at hospital. No complaints except wants something to drink. Active Medications Albuterol (Proventil) 2.5 mg IH Q3HRT PRN PRN Reason: Shortness Of Breath Albuterol/Ipratropium (Duoneb 0.5 Mg-3 Mg/3 Ml Soln) 1 ampul IH Q6HRT [facility] Last Admin: 08/08/16 14:14 Dose: 1 ampul Arformoterol Tartrate (Brovana Nebu) 15 mcg IH Q12HRT [facility] Last Admin: 08/08/16 07:49 Dose: 15 mcg Budesonide (Pulmicort) 0.5 mg IH Q12HRT [facility] Last Admin: 08/08/16 07:49 Dose: 0.5 mg Calcium/Vitamin D (Oysco D 500 Mg-200 Unit) 1 each PO TID [facility] Last Admin: 08/08/16 13:51 Dose: 1 each Divalproex Sodium (Depakote Dr) 125 mg PO BID [facility] Last Admin: 08/08/16 10:16 Dose: 125 mg Enoxaparin Sodium (Lovenox) 40 mg SUB-Q QDAY [facility] Last Admin: 08/08/16 10:16 Dose: 40 mg Levofloxacin/Dextrose (Levaquin 250mg/50ml) 50 mls @ 50 mls/hr IV Q24HR [facility] PRN Reason: Protocol Last Admin: 08/08/16 10:16 Dose: 50 mls/hr Memantine (Namenda Xr) 28 mg PO DAILY [facility] Last Admin: 08/08/16 10:17 Dose: 28 mg Methylprednisolone Sodium Succinate (Solu-Medrol) 20 mg IV Q8HR [facility] Last Admin: 08/08/16 13:51 Dose: 20 mg Mirtazapine (Remeron) 15 mg PO QHS [facility] Last Admin: 08/07/16 22:16 Dose: 15 mg Objective Vital Signs - 12hr 08/08/16 08/08/16 08/08/16 07:49 07:59 08:21 Temperature 97.9 F Pulse Rate Pulse Rate [ 52 L 56 L Anterior Bilateral Throughout] Pulse Rate [ 24 L Right] Respiratory 24 Rate Respiratory 18 20 Rate [Anterior Bilateral Throughout] Blood Pressure 106/55 [Right Arm] O2 Sat by Pulse 96 Oximetry 08/08/16 08/08/16 08/08/16 10:00 13:52 14:00 Temperature 98.0 F Pulse Rate 86 Pulse Rate [ Anterior Bilateral Throughout] Pulse Rate [ 88 Right] Respiratory 22 22 Rate Respiratory Rate [Anterior Bilateral Throughout] Blood Pressure 110/60 [Right Arm] O2 Sat by Pulse 96 Oximetry 08/08/16 08/08/16 08/08/16 14:14 14:25 17:53 Temperature 98.1 F Pulse Rate Pulse Rate [ 84 82 Anterior Bilateral Throughout] Pulse Rate [ 89 Right] Respiratory 22 Rate Respiratory 20 20 Rate [Anterior Bilateral Throughout] Blood Pressure 124/56 [Right Arm] O2 Sat by Pulse 95 Oximetry Constitutional: no acute distress, alert, other (cachectic) Eyes: non-icteric ENT: oropharynx moist Neck: supple Effort: normal Ascultation: Bilateral: diminished breath sounds (bases) Cardiovascular: regular rate and rhythm (no mrg) Gastrointestinal: normoactive bowel sounds, soft, non-tender, non-distended Integumentary: normal Extremities: no cyanosis, no edema Neurologic: normal mental status (Appears confused; alert), non-focal exam, pupils equal and round Psychiatric: mood appropriate, affect normal CBC and BMP: 08/07/16 15:44 08/06/16 20:16 Abnormal lab findings: Abnormal Labs 08/06/16 08/07/16 20:16 15:44 Seg Neuts % (Manual) 95.0 H Lymphocytes % (Manual) 4.0 L Lymphocytes # (Manual) 0.3 L Sodium 135 L D Carbon Dioxide 19 L Calcium 8.3 L Albumin 2.5 L Chest x-ray: report reviewed, image reviewed (small R pleural effusion; no PTX on L)
[2016-08-08] MEDS: REMERON PO SCH (22:19)
[2016-08-09] MEDS: DUONEB 0.5 MG-3 MG/3 ML SOLN IH SCH ×4 (08:21→20:49)
[2016-08-09] MEDS: BROVANA NEBU IH SCH ×2 (08:21→20:49)
[2016-08-09] MEDS: PULMICORT IH SCH ×2 (08:21→20:49)
--- NOTE | 2016-08-09 09:24 | XRay Report ---
AP CHEST: HISTORY: Follow-up pneumothorax. FINDINGS: The left chest tube remains in the same position since yesterday's exam at 1312 hours. No recurrent left pneumothorax is visualized. The left lung is generally clear. There is moderate opacity throughout the right lung base consistent with large areas of atelectasis in the right middle lobe and right lower lobe. Heart size remains normal. IMPRESSION: 1. No recurrent left pneumothorax. 2. Right middle lobe and right lower lobe atelectasis.
[2016-08-09] MEDS: NAMENDA XR PO SCH (10:12)
[2016-08-09] MEDS: OYSCO D 500 MG-200 UNIT PO SCH ×3 (10:12→21:22)
[2016-08-09] MEDS: LEVAQUIN PO SCH (10:12)
[2016-08-09] MEDS: LOVENOX SUB-Q SCH (10:13)
--- NOTE | 2016-08-09 15:39 | Query- Dyspnea ---
Brenda Helton Date:08/09/16 Blue Leather Sorter/CDS:Robbin Mahmood Phone#: Exercise your independent professional judgment when responding to query. Questions asked do not imply a particular answer is desired or expected. We greatly appreciate your clarification on this issue. Clinical Documentation States: 85 y/o m admitted on 08/16/16 for spontaneous pneumothorax, SOB, and COPD exacerbation. Patient had pleural effusion and underwent chest tube drainage. Patient treated with albuterol and methyprednisolone and levofloxacin. Patinet placed on 4L nasal cannula and saturated at 94%. Clinical Findings Show: [x] RR:22 [x] Accessory muscle use [x] Drop of 15mmHg from previous PaO2 Please clarify if the patient had any of the following conditions based on the above clinical findings: [ x] Respiratory Failure [ x] Acute [ ] Acute on Chronic [ ] Chronic [ ] Respiratory failure due to trauma [ ] Acute Respiratory Distress Syndrome [ ] Other: [ ] Unable to determine [ ] Comment/Explanation: Present on Admission: [x ] Yes (Y) [ ] Clinically undeterminable (W) [ ] No (N) Please also document response in your Progress Notes and/or Discharge Summary and indicate if the condition was present on admission. LAD
--- NOTE | 2016-08-09 17:07 | Echocardiography Report ---
Transthoracic Echocardiogram Indication: SOB BP: 107/587 Conclusions *The study is technically limited due to poor parasternal windows. *The estimated ejection fraction is 45-50%. *Abnormal left ventricular diastolic filling is observed, consistent with impaired relaxation. *The aortic valve is not well visualized. *The mitral valve is not well visualized. *The tricuspid valve is not well visualized. Findings Procedure Info: The study quality is technically difficult. The study is technically limited due to poor acoustic windows. The study is technically limited due to poor parasternal windows. The study is technically limited due to poor apical windows. The study is technically limited due to patient body habitus. The study was technically limited due to the patient's inability to lay in the left lateral decubitus position. Left Ventricle: The left ventricle is not well visualized. The estimated ejection fraction is 45-50%. Abnormal left ventricular diastolic filling is observed, consistent with impaired relaxation. Left Atrium: The left atrium is not well visualized. Right Ventricle: The right ventricle is not well visualized. Right Atrium: The right atrium is not well visualized. Aortic Valve: The aortic valve is not well visualized. Mitral Valve: The mitral valve is not well visualized. Tricuspid Valve: The tricuspid valve is not well visualized. There is trace tricuspid regurgitation. The right ventricular systolic pressure is calculated at 28 mmHg. Pulmonic Valve: The pulmonic valve is not well visualized. Measurements Diastolic/Systolic Function Name Value Normal Range MV E-wave Vmax 0.59 m/sec - MV deceleration time 169 msec - MV A-wave Vmax 0.82 m/sec - MV E:A ratio 0.7 ratio - LV septal e' Vmax 0.07 m/sec - LV lateral e' Vmax 0.09 m/sec - LV E:e' septal ratio 8.7 ratio - LV E:e' lateral ratio 6.8 ratio - Aortic Valve Name Value Normal Range AV VTI 25 cm - AV mean gradient 3 mmHg - LVOT VTI 15.1 cm - LVOT mean gradient 1 mmHg - Mitral Valve Name Value Normal Range MV PHT 54 msec - MVA (PHT) 4.07 cm2 - Tricuspid Valve Name Value Normal Range TR Vmax 2.52 m/sec - TR peak gradient 25 mmHg - RAP 3 mmHg - RVSP 28 mmHg -
--- NOTE | 2016-08-09 18:23 | Progress Note ---
Assessment and Plan Imp: 1. COPD/centrilobular emphysema per history, with ? exacerbation 2. Spontaneous PTX, presumed due to COPD 3. Cachexia 4. Dementia, ? Alzheimer's 5. Pleural effusions, r/o CHF/pulm HTN 6. Acute respiratory failure, hypoxia, POA -> resolved Rec: 1. No air leak in pleurovac; [address] chest tube to water seal from 05/15 were disregarded for unclear reasons; tube personally placed on water seal today by me 2. CXR in AM; if no PTX on water seal will pull tube; if no PTX after pulling can go back to SNF 3. Tapered steroids 4. Pleural effusions noted on CXR; check BNP and Echo (patient refusing) 5. Consider nutrition evaluation 6. Will follow; if he continues to refuse care can d/c back to SNF once we can get the CT out Plan of care reviewed w/ patient, he understands/agrees Subjective Date of service: 08/09/16 Principal diagnosis: PTX Interval history: No events. No complaints. No air leak. CT still on suction for unclear reasons. Active Medications Albuterol (Proventil) 2.5 mg IH Q3HRT PRN PRN Reason: Shortness Of Breath Albuterol/Ipratropium (Duoneb 0.5 Mg-3 Mg/3 Ml Soln) 1 ampul IH Q6HRT [facility] Last Admin: 08/09/16 17:00 Dose: 1 ampul Arformoterol Tartrate (Brovana Nebu) 15 mcg IH Q12HRT [facility] Last Admin: 08/09/16 08:21 Dose: Not Given Budesonide (Pulmicort) 0.5 mg IH Q12HRT [facility] Last Admin: 08/09/16 08:21 Dose: 0.5 mg Calcium/Vitamin D (Oysco D 500 Mg-200 Unit) 1 each PO TID [facility] Last Admin: 08/09/16 14:04 Dose: 1 each Divalproex Sodium (Depakote Dr) 125 mg PO BID [facility] Last Admin: 08/09/16 10:12 Dose: 125 mg Enoxaparin Sodium (Lovenox) 40 mg SUB-Q QDAY [facility] Last Admin: 08/09/16 10:13 Dose: 40 mg Levofloxacin (Levaquin) 500 mg PO Q24HR [facility] Stop: 08/15/16 10:01 Last Admin: 08/09/16 10:12 Dose: 500 mg Memantine (Namenda Xr) 28 mg PO DAILY [facility] Last Admin: 08/09/16 10:12 Dose: 28 mg Methylprednisolone Sodium Succinate (Solu-Medrol) 20 mg IV Q8HR [facility] Last Admin: 08/09/16 14:04 Dose: 20 mg Mirtazapine (Remeron) 15 mg PO QHS [facility] Last Admin: 08/08/16 22:19 Dose: 15 mg Objective Vital Signs - 12hr 08/09/16 08/09/16 08/09/16 07:45 07:46 08:00 Temperature Pulse Rate 96 H Pulse Rate [ 82 Anterior Bilateral Throughout] Pulse Rate [ Right] Respiratory 18 Rate Respiratory 17 Rate [Anterior Bilateral Throughout] Blood Pressure [Right Arm] O2 Sat by Pulse Oximetry 08/09/16 08/09/16 08/09/16 08:22 09:32 13:21 Temperature 97.7 F 97.6 F Pulse Rate Pulse Rate [ 84 Anterior Bilateral Throughout] Pulse Rate [ 107 H 71 Right] Respiratory 18 18 Rate Respiratory 17 Rate [Anterior Bilateral Throughout] Blood Pressure 109/55 101/56 [Right Arm] O2 Sat by Pulse 96 92 Oximetry 08/09/16 08/09/16 08/09/16 14:00 17:01 18:08 Temperature 97.0 F L Pulse Rate Pulse Rate [ 86 86 Anterior Bilateral Throughout] Pulse Rate [ 59 L Right] Respiratory 18 Rate Respiratory 18 17 Rate [Anterior Bilateral Throughout] Blood Pressure 109/53 [Right Arm] O2 Sat by Pulse 94 Oximetry Constitutional: no acute distress, alert, other (cachectic) Eyes: non-icteric ENT: oropharynx moist Neck: supple Effort: normal Ascultation: Bilateral: diminished breath sounds (bases) Cardiovascular: regular rate and rhythm (no mrg) Gastrointestinal: normoactive bowel sounds, soft, non-tender, non-distended Integumentary: normal Extremities: no cyanosis, no edema Neurologic: normal mental status (Appears confused; alert), non-focal exam, pupils equal and round Psychiatric: mood appropriate, affect normal CBC and BMP: 08/07/16 15:44 08/06/16 20:16 Abnormal lab findings: Abnormal Labs 08/06/16 08/07/16 20:16 15:44 Seg Neuts % (Manual) 95.0 H Lymphocytes % (Manual) 4.0 L Lymphocytes # (Manual) 0.3 L Sodium 135 L D Carbon Dioxide 19 L Calcium 8.3 L Albumin 2.5 L Chest x-ray: report reviewed, image reviewed (no PTX)
--- NOTE | 2016-08-09 18:31 | Progress Note ---
Assessment and Plan Assessment and plan: 1. Spontaneous pneumothorax Left chest tube inserted and connected to under water seal serial cxr to assess for resolution, Input from Freelance Court Reporter, Dr Caballero appreciated, to water seal, will obtain CXR tomorrow and likely pull CT if no reaccumulation (2) COPD with exacerbation Continue with bronchodilators, taper steroids and abx. 3. Bradycardia obtain 12 EKG, cardiology consult 4. Bilateral pleural effusions fup echo, patient had previously refused echo, I personally counseled him about the utility of this non-invasive test and he now agrees to it 5. Moderate malnutrtion Cupola Melter Helper consult appreciated, continue to encourage him with diet History Interval history: Denies sob, wheezing or cough Hospitalist Physical - Physical exam Narrative exam: General: Patient appears well in no distress, cachectic HEENT: MMM, EOMI cardiac: S1-S2 heard lungs: Clear to auscultation abdomen: soft, nontender, nondistended bowel sounds positive extremities: no edema clubbing or cyanosis Skin: no rash or lesion Neuro: no focal deficit Psych: appropriate behavior and mood, cognition intact - Constitutional Vitals: Temp Pulse Resp BP Pulse Ox 97.0 F L 59 L 18 109/53 94 08/09/16 18:08 08/09/16 18:08 08/09/16 18:08 08/09/16 18:08 08/09/16 18:08 General appearance: Present: mild distress Results - Labs CBC & Chem 7: 08/07/16 15:44 08/06/16 20:16 Labs: Laboratory Last Values WBC 7.3 K/mm3 (4.5-11.0) 08/07/16 15:44 RBC 4.41 M/mm3 (3.65-5.03) 08/07/16 15:44 Hgb 13.4 gm/dl (11.8-15.2) 08/07/16 15:44 Hct 41.1 % (35.5-45.6) 08/07/16 15:44 MCV 93 fl (84-94) 08/07/16 15:44 MCH 31 pg (28-32) 08/07/16 15:44 MCHC 33 % (32-34) 08/07/16 15:44 RDW 14.9 % (13.2-15.2) 08/07/16 15:44 Plt Count 258 K/mm3 (140-440) 08/07/16 15:44 Lymph % (Auto) 14.1 % (13.4-35.0) 08/06/16 16:42 [place] % (Auto) 11.0 % (0.0-7.3) H 08/06/16 16:42 Eos % (Auto) 1.3 % (0.0-4.3) 08/06/16 16:42 Baso % (Auto) 1.0 % (0.0-1.8) 08/06/16 16:42 Lymph # 1.2 K/mm3 (1.2-5.4) 08/06/16 16:42 [place] # 0.9 K/mm3 (0.0-0.8) H 08/06/16 16:42 Eos # 0.1 K/mm3 (0.0-0.4) 08/06/16 16:42 Baso # 0.1 K/mm3 (0.0-0.1) 08/06/16 16:42 Add Manual Diff Complete 08/07/16 15:44 Total Counted 100 08/07/16 15:44 Seg Neutrophils % Plastering Contractor 08/07/16 15:44 Seg Neuts % (Manual) 95.0 % (40.0-70.0) H 08/07/16 15:44 Band Neutrophils % 0 % 08/07/16 15:44 Lymphocytes % (Manual) 4.0 % (13.4-35.0) L 08/07/16 15:44 Reactive Lymphs % (Man) 0 % 08/07/16 15:44 Monocytes % (Manual) 1.0 % (0.0-7.3) 08/07/16 15:44 Eosinophils % (Manual) 0 % (0.0-4.3) 08/07/16 15:44 Basophils % (Manual) 0 % (0.0-1.8) 08/07/16 15:44 Metamyelocytes % 0 % 08/07/16 15:44 Myelocytes % 0 % 08/07/16 15:44 Promyelocytes % 0 % 08/07/16 15:44 Blast Cells % 0 % 08/07/16 15:44 Nucleated RBC % Not Reportable 08/07/16 15:44 Seg Neutrophils # 6.1 K/mm3 (1.8-7.7) 08/06/16 16:42 Seg Neutrophils # Man 6.9 K/mm3 (1.8-7.7) 08/07/16 15:44 Band Neutrophils # 0.0 K/mm3 08/07/16 15:44 Lymphocytes # (Manual) 0.3 K/mm3 (1.2-5.4) L 08/07/16 15:44 Abs React Lymphs (Man) 0.0 K/mm3 08/07/16 15:44 Monocytes # (Manual) 0.1 K/mm3 (0.0-0.8) 08/07/16 15:44 Eosinophils # (Manual) 0.0 K/mm3 (0.0-0.4) 08/07/16 15:44 Basophils # (Manual) 0.0 K/mm3 (0.0-0.1) 08/07/16 15:44 Metamyelocytes # 0.0 K/mm3 08/07/16 15:44 Myelocytes # 0.0 K/mm3 08/07/16 15:44 Promyelocytes # 0.0 K/mm3 08/07/16 15:44 Blast Cells # 0.0 K/mm3 08/07/16 15:44 WBC Morphology Not Reportable 08/07/16 15:44 Hypersegmented Neuts Not Reportable 08/07/16 15:44 Hyposegmented Neuts Not Reportable 08/07/16 15:44 Hypogranular Neuts Not Reportable 08/07/16 15:44 Smudge Cells Not Reportable 08/07/16 15:44 Toxic Granulation Not Reportable 08/07/16 15:44 Toxic Vacuolation Not Reportable 08/07/16 15:44 Dohle Bodies Not Reportable 08/07/16 15:44 Pelger-Huet Anomaly Not Reportable 08/07/16 15:44 Kamari Rods Not Reportable 08/07/16 15:44 Platelet Estimate Appears normal 08/07/16 15:44 Clumped Platelets Not Reportable 08/07/16 15:44 Plt Clumps, EDTA Not Reportable 08/07/16 15:44 Large Platelets Not Reportable 08/07/16 15:44 Giant Platelets Few 08/07/16 15:44 Platelet Satelliting Not Reportable 08/07/16 15:44 Plt Morphology Comment Not Reportable 08/07/16 15:44 RBC Morphology Not Reportable 08/07/16 15:44 Dimorphic RBCs Not Reportable 08/07/16 15:44 Polychromasia Not Reportable 08/07/16 15:44 Hypochromasia Not Reportable 08/07/16 15:44 Poikilocytosis 1+ 08/07/16 15:44 Anisocytosis 1+ 08/07/16 15:44 Microcytosis Not Reportable 08/07/16 15:44 Macrocytosis Not Reportable 08/07/16 15:44 Spherocytes Not Reportable 08/07/16 15:44 Pappenheimer Bodies Not Reportable 08/07/16 15:44 Sickle Cells Not Reportable 08/07/16 15:44 Target Cells Not Reportable 08/07/16 15:44 Tear Drop Cells Not Reportable 08/07/16 15:44 Ovalocytes 1+ 08/07/16 15:44 Helmet Cells Not Reportable 08/07/16 15:44 Clark-V[place]ennes Bodies Not Reportable 08/07/16 15:44 Edison Rings Not Reportable 08/07/16 15:44 Elwood Cells Not Reportable 08/07/16 15:44 Bite Cells Not Reportable 08/07/16 15:44 Crenated Cell Not Reportable 08/07/16 15:44 Elliptocytes Not Reportable 08/07/16 15:44 Acanthocytes (Spur) Not Reportable 08/07/16 15:44 Rouleaux Not Reportable 08/07/16 15:44 Hemoglobin C Crystals Not Reportable 08/07/16 15:44 Schistocytes Not Reportable 08/07/16 15:44 Malaria parasites Not Reportable 08/07/16 15:44 Alfred Bodies Not Reportable 08/07/16 15:44 Hem Pathologist Commnt No 08/07/16 15:44 Sodium 135 mmol/L (137-145) L D 08/06/16 20:16 Potassium 4.8 mmol/L (3.6-5.0) 08/06/16 20:16 Chloride 103.4 mmol/L (98-107) 08/06/16 20:16 Carbon Dioxide 19 mmol/L (22-30) L 08/06/16 20:16 Anion Gap 17 mmol/L 08/06/16 20:16 BUN 16 mg/dL (9-20) 08/06/16 20:16 Creatinine 0.8 mg/dL (0.8-1.5) 08/06/16 20:16 Estimated GFR > 60 ml/min 08/06/16 20:16 BUN/Creatinine Ratio 20.00 % 08/06/16 20:16 Glucose 92 mg/dL (75-100) 08/06/16 20:16 Calcium 8.3 mg/dL (8.4-10.2) L 08/06/16 20:16 Total Bilirubin 0.5 mg/dL (0.1-1.2) 08/06/16 20:16 AST 40 units/L (5-40) 08/06/16 20:16 ALT 9 units/L (7-56) 08/06/16 20:16 Alkaline Phosphatase 80 units/L (35-129) 08/06/16 20:16 Troponin T < 0.010 ng/mL (0.00-0.029) 08/06/16 16:42 Total Protein 6.9 g/dL (6.3-8.2) 08/06/16 20:16 Albumin 2.5 g/dL (3.9-5) L 08/06/16 20:16 Albumin/Globulin Ratio 0.6 % 08/06/16 20:16
[2016-08-09 18:36] LABS: Hematocrit 36.9 % (35.5-45.6); Mean Corpuscular HGB Conc 33 % (32-34); Mean Corpuscular Hemoglobin 31 pg (28-32); Mean Corpuscular Volume 94 fl (84-94); Platelet Count 256 K/mm3 (140-440); Red Blood Count 3.93 M/mm3 (3.65-5.03); Red Cell Distribution Width 14.9 % (13.2-15.2); White Blood Count 12.3 K/mm3 (4.5-11.0)
[2016-08-09 19:12] LABS: Basophils % (Manual) 0 % (0.0-1.8); Blastocytes % (Manual) 0 %; Eosinophils % (Manual) 0 % (0.0-4.3)
[2016-08-09 19:13] LABS: Diff Status Complete; Large Platelets 1+; Platelet Estimate Consistent w Auto; RBC Morphology Normal
[2016-08-09] MEDS: REMERON PO SCH (21:21)
[2016-08-10] MEDS: DUONEB 0.5 MG-3 MG/3 ML SOLN IH SCH ×4 (02:16→13:59)
[2016-08-10] MEDS: BROVANA NEBU IH SCH (07:55)
[2016-08-10] MEDS: PULMICORT IH SCH (07:58)
--- NOTE | 2016-08-10 08:25 | XRay Report ---
Portable chest: Comparison to the prior study of August 09 shows no significant change. There is an infiltrate and pleural effusion in the right lung. There is a diffusely coarse interstitial pattern throughout both lungs. No change in the left Heimlich tube positioning. No left pneumothorax. Impression: No interval change.
[2016-08-10] MEDS: LOVENOX SUB-Q SCH (10:12)
[2016-08-10] MEDS: LEVAQUIN PO SCH (10:12)
[2016-08-10] MEDS: NAMENDA XR PO SCH (10:12)
[2016-08-10] MEDS: OYSCO D 500 MG-200 UNIT PO SCH ×2 (10:12→15:05)
--- NOTE | 2016-08-10 10:58 | Discharge Summary ---
Providers - Providers Date of Admission: 08/06/16 19:50 Attending physician: TERI VARGAS MD 08/08/16 11:19 Consult to Dietitian/Nutrition [CONS] Routine Physician Instructions: Reason For Exam: Reason for Consult: Malnutrition Primary care physician: RUG SHAMPOOER Hospitalization Condition: Serious Hospital course: 85M who presented with acute SOB, found to have spontaneous PTX 1. Spontaneous pneumothorax He had chest tube placed in ER, it was placed to water seal and subsequently removed, no evidence of reaccumulation (2) COPD with exacerbation rx with bronchodilators, steroids and abx. 3. Bradycardia cardiology input appreciated, Echo showed EF of 45%, and impaired relaxation, likely due to ageing of sinus node, All AV jimmy blocking agents to be avoided 4. Bilateral pleural effusions small and mild, likely due to CHF, Not in exacerbation, meds optimized 5. 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, continue to encourage him with diet Disposition: DC/TX SNF [facility] Time spent for discharge: 35 minutes Core Measure Documentation - Palliative Care Palliative Care/ Comfort Measures: Not Applicable - Core Measures Any of the following diagnoses?: heart failure, none - Heart Failure Discharge Requirements LOUIE/ARB for LVSD if EF <40%: Yes Beta slade at discharge: No Reason for no beta slade on DC: Bradycardia Exam - Physical Exam Narrative exam: General: Patient appears well in no distress, cachectic HEENT: MMM, EOMI cardiac: S1-S2 heard lungs: Clear to auscultation abdomen: soft, nontender, nondistended bowel sounds positive extremities: no edema clubbing or cyanosis Skin: no rash or lesion Neuro: no focal deficit Psych: appropriate behavior and mood, cognition intact - Constitutional Vitals: Temp Pulse Resp BP Pulse Ox 97.8 F 81 18 140/63 95 08/10/16 08:59 08/10/16 08:59 08/10/16 08:59 08/10/16 08:59 08/10/16 08:59 Plan Follow up with: PRIMARY CAREMD [Primary Care Provider] - 3-5 Days Prescriptions: LORazepam [Ativan] 1 tab PO Q8H PRN #3 tablet PRN Reason: Anxiety Levofloxacin [Levaquin TAB] 500 mg PO Q24HR #5 tablet Lisinopril [Zestril TAB] 5 mg PO QDAY #30 tablet Prednisone [predniSONE 5 mg (6-Day Pack, 21 Tabs)] 5 mg PO .TAPER #1 tab.ds.pk
--- NOTE | 2016-08-10 14:11 | Progress Note ---
Assessment and Plan Imp: 1. COPD/centrilobular emphysema per history, with ? exacerbation 2. Spontaneous PTX, presumed due to COPD; resolved 3. Cachexia 4. Dementia, ? Alzheimer's 5. Pleural effusions, r/o CHF/pulm HTN 6. Acute respiratory failure, hypoxia, POA -> resolved Rec: 1. CXR without PTX s/p CT removal and he is clinically stable on RA 2. Patient refusing further work-up including Echo; recommend discharge back to SNF Plan of care reviewed w/ patient, he understands/agrees Subjective Date of service: 08/10/16 Principal diagnosis: PTX Interval history: No events. No complaints. No air leak. CT on water seal -> removed without difficulty on exhalation. Active Medications Albuterol (Proventil) 2.5 mg IH Q3HRT PRN PRN Reason: Shortness Of Breath Albuterol/Ipratropium (Duoneb 0.5 Mg-3 Mg/3 Ml Soln) 1 ampul IH Q6HRT [facility] Last Admin: 08/10/16 13:59 Dose: Not Given Arformoterol Tartrate (Brovana Nebu) 15 mcg IH Q12HRT [facility] Last Admin: 08/10/16 07:55 Dose: 15 mcg Budesonide (Pulmicort) 0.5 mg IH Q12HRT [facility] Last Admin: 08/10/16 07:58 Dose: 0.5 mg Calcium/Vitamin D (Oysco D 500 Mg-200 Unit) 1 each PO TID [facility] Last Admin: 08/10/16 15:05 Dose: 1 each Divalproex Sodium (Depakote Dr) 125 mg PO BID [facility] Last Admin: 08/10/16 12:49 Dose: 125 mg Enoxaparin Sodium (Lovenox) 40 mg SUB-Q QDAY [facility] Last Admin: 08/10/16 10:12 Dose: 40 mg Levofloxacin (Levaquin) 500 mg PO Q24HR [facility] Stop: 08/15/16 10:01 Last Admin: 08/10/16 10:12 Dose: 500 mg Memantine (Namenda Xr) 28 mg PO DAILY [facility] Last Admin: 08/10/16 10:12 Dose: 28 mg Methylprednisolone Sodium Succinate (Solu-Medrol) 20 mg IV Q8HR [facility] Last Admin: 08/10/16 15:05 Dose: 20 mg Mirtazapine (Remeron) 15 mg PO QHS [facility] Last Admin: 08/09/16 21:21 Dose: 15 mg Objective Vital Signs - 12hr 08/10/16 08/10/16 08/10/16 04:10 07:47 07:55 Temperature 98.3 F Pulse Rate 84 Pulse Rate [ 77 Anterior Bilateral Throughout] Pulse Rate [ 90 Right] Respiratory 18 20 Rate Respiratory 18 Rate [Anterior Bilateral Throughout] Blood Pressure 107/62 [Right Arm] O2 Sat by Pulse 97 95 Oximetry 08/10/16 08/10/16 07:56 08:59 Temperature 97.8 F Pulse Rate Pulse Rate [ 77 Anterior Bilateral Throughout] Pulse Rate [ 81 Right] Respiratory 18 Rate Respiratory 18 Rate [Anterior Bilateral Throughout] Blood Pressure 140/63 [Right Arm] O2 Sat by Pulse 95 Oximetry Constitutional: no acute distress, alert, other (cachectic) Eyes: non-icteric ENT: oropharynx moist Neck: supple Effort: normal Ascultation: Bilateral: diminished breath sounds (bases) Cardiovascular: regular rate and rhythm (no mrg) Gastrointestinal: normoactive bowel sounds, soft, non-tender, non-distended Integumentary: normal Extremities: no cyanosis, no edema Neurologic: normal mental status (Appears confused; alert), non-focal exam, pupils equal and round Psychiatric: mood appropriate, affect normal CBC and BMP: 08/09/16 17:54 08/06/16 20:16 Abnormal lab findings: Abnormal Labs 08/06/16 08/07/16 08/09/16 20:16 15:44 17:54 WBC 12.3 H Seg Neuts % (Manual) 95.0 H 92.0 H Lymphocytes % (Manual) 4.0 L 5.0 L Seg Neutrophils # Man 11.3 H Lymphocytes # (Manual) 0.3 L 0.6 L Sodium 135 L D Carbon Dioxide 19 L Calcium 8.3 L Albumin 2.5 L Chest x-ray: report reviewed (no PTX)
--- NOTE | 2016-08-10 15:47 | XRay Report ---
AP chest x-ray. Findings: There is no evidence of recurrent pneumothorax status post removal of a left Heimlich tube. The right lower lobe infiltrate and right pleural effusion are unchanged since the earlier study today. No new findings are seen.
[2016-08-10 16:39] VITALS: BP 101/57
== END 2016-08-10 20:20 | DRG 199 ==
LOC: ED 16:15 → 4A 19:50
PROVIDERS: ADMIT Family Medicine; ATTEND Internal Medicine
PROC: 0W9B30Z Drainage of Left Pleural Cavity with Drainage Device, Percutaneous Approach (ICD-10-PCS; principal; 2016-08-06)
DX: J93.83 Other pneumothorax (principal); J96.01 Acute respiratory failure with hypoxia; J44.1 Chronic obstructive pulmonary disease with (acute) exacerbation; E44.0 Moderate protein-calorie malnutrition; R64 Cachexia; J90 Pleural effusion, not elsewhere classified; Z68.1 Body mass index [BMI] 19.9 or less, adult; F32.9 Major depressive disorder, single episode, unspecified; F03.90 Unspecified dementia, unspecified severity, without behavioral disturbance, psychotic disturbance, mood disturbance, and anxiety; R00.1 Bradycardia, unspecified; Z87.891 Personal history of nicotine dependence; Z82.49 Family history of ischemic heart disease and other diseases of the circulatory system
CPT/HCPCS: 36415; 71010; 80048; 80053; 84484; 85007; 85025; 93005; 93010; 93306; 94640; 96374; J0456; J1650; J1956; J2920; J7050

== ENCOUNTER 2016-10-17 13:21 | Inpatient (IN) | payer MEDICARE ==
--- NOTE | 2016-10-17 15:34 | XRay Report ---
AP chest History: Difficulty in breathing. Findings: Hazy opacity is again noted at the right lung base which appears to represent right lower lobe atelectasis. The left lung is clear. Mild underlying emphysematous changes are suspected normal heart size and pulmonary vascularity. No overwhelming change since 08/10/16. Impression: Emphysematous changes. Right lower lobe atelectasis.
[2016-10-17 16:11] LABS: Basophils % (Auto) 0.7 % (0.0-1.8); Eosinophils % (Auto) 0.4 % (0.0-4.3); Hematocrit 44.6 % (35.5-45.6); Hemoglobin 14.4 gm/dl (11.8-15.2); Mean Corpuscular HGB Conc 32 % (32-34); Mean Corpuscular Hemoglobin 30 pg (28-32); Mean Corpuscular Volume 94 fl (84-94); Platelet Count 306 K/mm3 (140-440); Red Blood Count 4.75 M/mm3 (3.65-5.03); Red Cell Distribution Width 15.2 % (13.2-15.2); White Blood Count 10.5 K/mm3 (4.5-11.0)
[2016-10-17 16:23] LABS: Creatine Kinase MB < 1.0 ng/mL (0.0-4.0); INR 1.28 (0.87-1.13); Partial Thromboplastin Time 25.6 Sec. (24.2-36.6)
[2016-10-17 16:25] LABS: Alanine Aminotransferase 10 units/L (7-56); Albumin 3.7 g/dL (3.9-5); Albumin/Globulin Ratio 0.9 %; Alkaline Phosphatase 97 units/L (35-129); Anion Gap 18 mmol/L; Bilirubin,Direct 0.2 mg/dL (0-0.2); Bilirubin,Indirect 0.6 mg/dL; Bilirubin,Total 0.8 mg/dL (0.1-1.2); Blood Urea Nitrogen 23 mg/dL (9-20); Carbon Dioxide 28 mmol/L (22-30); Chloride 106.8 mmol/L (98-107); Creatine Kinase 17 units/L (55-170); Glucose 101 mg/dL (75-100); Potassium 4.3 mmol/L (3.6-5.0); Sodium 148 mmol/L (137-145); Total Protein 7.7 g/dL (6.3-8.2)
--- NOTE | 2016-10-17 16:37 | Emergency Department Report ---
HPI - General Chief Complaint: Dyspnea/Respdistress Time Seen by Provider: 10/17/16 14:53 - HPI HPI: This is a 85-year-old male presents to the emergency department by EMS from [facility] with the complaint of abnormal chest imaging and a request for further evaluation by the primary care doctor, which is listed as either Dr. Akshat Wagner or Dr. Ernesto Puente. The patient himself says "I don't know why was sent here." The patient has a history of COPD, pleural effusions, colon cancer. Patient is oxygen dependent. He also has a history of sick sinus syndrome, anxiety, vascular dementia. For reason that is unknown to myself, the patient had a chest x-ray at the facility that resulted as showing a large right pleural effusion. There is a note from the physician requesting further evaluation and recommending a CT scan of the chest. ED Past Medical Hx - Past Medical History Previous Medical History?: Yes Hx Hypertension: Yes Hx Seizures: Yes Hx Psychiatric Treatment: Yes (Depression) Hx COPD: Yes Hx Dementia: Yes - Surgical History Past Surgical History?: No - Social History Smoking Status: Former Smoker Substance Use Type: None - Medications Home Medications: Home Medications Medication Instructions Recorded Confirmed Last Taken Type Calcium Carbonate/Vitamin D3 1 tab PO TID 08/06/16 10/18/16 Unknown History [Calcium 500 + D Tablet] Depakote ER 125 mg PO BID 08/06/16 10/18/16 Unknown History Fluticasone/Vilanterol [Breo 2 puff INHALATION DAILY 08/06/16 10/18/16 Unknown History Ellipta 100-25 Mcg INH] Memantine HCl [Namenda] 10 mg PO BID 08/06/16 10/18/16 Unknown History Mirtazapine 15 mg PO QHS 08/06/16 10/18/16 Unknown History Arformoterol Nebu [Brovana Nebu] 15 mcg IH Q12HRT ml 08/10/16 10/18/16 Unknown Rx LORazepam [Ativan] 1 tab PO Q8H PRN #3 tablet 08/10/16 10/18/16 Unknown Rx Levofloxacin [Levaquin TAB] 500 mg PO Q24HR #5 tablet 08/10/16 10/18/16 Unknown Rx Lisinopril [Zestril TAB] 5 mg PO QDAY #30 tablet 08/10/16 10/18/16 Unknown Rx Prednisone [predniSONE 5 mg (6-Day 5 mg PO .TAPER #1 tab.ds.pk 08/10/16 Unknown Rx Pack, 21 Tabs)] Ipratropium/Albuterol Sulfate 1 ampul IH Q8HRT 10/18/16 10/18/16 Unknown History [Duoneb 0.5 mg-3 mg/3 ml Soln] ED Review of Systems ROS: Stated complaint: ABNORMAL CT FURTHER EVAL FOR PLEURAL EFFUSION Other details as noted in HPI Comment: Unobtainable due to pts medical conditions Physical Exam - Physical Exam Vital Signs: Vital Signs 10/17/16 10/17/16 13:46 16:00 Temperature 97.9 F Pulse Rate 90 75 Respiratory 24 16 Rate Blood Pressure 127/58 Blood Pressure 115/41 [Right] O2 Sat by Pulse 96 96 Oximetry Physical Exam: GENERAL: Patient is elderly and thin-appearing. He does not appear in any acute distress. HEENT: Normocephalic. Atraumatic. Extraocular motions are intact. Patient has moist mucous membranes. Pupils equal reactive to light bilaterally. NECK: Supple. Trachea is midline. CHEST/LUNGS: Coarse breath sounds throughout the chest. Patient has a chronic wet sounding cough. Mild tachypnea but no accessory muscle use. There is no respiratory distress noted. HEART/CARDIOVASCULAR: Regular. There is no tachycardia. There is no gallop rub or murmur. ABDOMEN: Abdomen is soft, nontender. Patient has normal bowel sounds. There is no abdominal distention. SKIN: Warm and dry. NEURO: The patient is awake, alert. The patient is cooperative. The patient has no focal neurologic deficits. The patient has normal speech. MUSCULOSKELETAL: There is no tenderness or deformity. There is no limitation range of motion. There is no evidence of acute injury. ED Course Vital Signs 10/17/16 10/17/16 13:46 16:00 Temperature 97.9 F Pulse Rate 90 75 Respiratory 24 16 Rate Blood Pressure 127/58 Blood Pressure 115/41 [Right] O2 Sat by Pulse 96 96 Oximetry - EJ/Peripheral Line Arm R Time Out Performed: Yes Indications: nurses unable to establis Skin Cleansed in Sterile Fashion: Yes Size: 20 Dressing Placed: Tegaderm, tape Patient Tolerated Procedure: well ED Medical Decision Making - Lab Data Result diagrams: 10/17/16 13:55 10/17/16 13:55 - EKG Data -: EKG Interpreted by Me EKG shows normal: sinus rhythm (with frequent PVCs), axis, intervals, QRS complexes, ST-T waves (nonspecific ST-T changes in the septal leads) Rate: normal - EKG Data When compared to previous EKG there are: previous EKG unavailable Interpretation: other (sinus rhythm with frequent PVCs, normal axis, normal rate , nonspecific changes in the septal leads) - Radiology Data Radiology results: report reviewed Chest x-ray shows emphysematous changes and right lower lobe atelectasis. CT of the chest with IV contrast shows calcified pleural plaques seen bilaterally that may represent or indicate prior spasticity exposure. Large right pleural effusion. There is atelectasis in the right lung base. Patchy opacity in the posterior aspect of the right upper lobe and right lower lobe may be secondary to infiltrate and atelectasis. Emphysematous changes. There is scarring in the lung apices. Nodular foci are seen in the apical regions bilaterally. - Medical Decision Making 85-year-old male presents to the emergency department after he was sent in for further evaluation as the chest x-ray at the [facility] was found show a large right pleural effusion. The patient has some history of vascular dementia and currently does not have any complaints but he does have a wet sounding cough that occurs with coughing fits and coarse breath sounds throughout the chest. Patient's labs are mostly unremarkable other than a BNP of about 700. Chest x- ray here was read by radiology as emphysema. We had some difficulty getting IV established in this patient to get the CT of the chest completed. I just placed 1 via ultrasound guidance in the right arm and the patient will have the CT scan of the chest. He was given some breathing treatments and Solu-Medrol and will be admitted to hospital for further evaluation. Upon reviewing the results of the CT scan, it was confirmed the patient does have a large right pleural effusion that may need thoracentesis. There are also some nodular densities and emphysematous changes. As planned, the patient was admitted to the hospital. - Differential Diagnosis CHF, malignancy, pneumonia, COPD Critical Care Time: No Critical care attestation.: If time is entered above; I have spent that time in minutes in the direct care of this critically ill patient, excluding procedure time. ED Disposition Clinical Impression: Shortness of breath, COPD with exacerbation, Pleural effusion Disposition: OP ADMITTED IP TO THIS HOSP Is pt being admited?: Yes Condition: Stable Time of Disposition: 20:20
[2016-10-17] MEDS ORDERED: DUONEB 0.5 MG-3 MG/3 ML SOLN IH ONE (20:18)
[2016-10-17] MEDS ORDERED: NACL 0.9% 1000 ML 0 ML ONE (20:29)
--- NOTE | 2016-10-17 20:32 | Admit Criteria Form ---
Admission Criteria Documentation: COPD Clinical Indications for Admission to Inpatient Care (Place 'X' for any and all applicable criteria): Admission is indicated for ANY ONE of the following (1)(2)(3): [ X]I. Acute exacerbation by high-risk comorbidity (e.g., pneumonia, dysrhythmia, heart failure, pleural effusion, pneumothorax) or severe underlying COPD (e.g., steroid dependent) [ ]II. Inpatient admission required rather than observation care (see Chronic Obstructive Pulmonary Disease: Observation Care) because of ANY ONE of the following: [ ]a) New or pre-existing signs or symptoms of COPD (eg, dyspnea or Tachypnea at rest or with minimal activity) that persist despite outpatient and observation care treatment [ ]b) New-onset hypoxemia (room air SaO2 less than 90%, PO2 less than 60 mm Hg (8.0 kPa)) that persists despite outpatient and observation care treatment [ ]c) Worsening of pre-existing hypoxemia (eg, new or increased requirement for supplemental oxygen to maintain oxygenation at baseline level) that persists despite outpatient and observation care treatment, with oxygen treatment needs performable only in acute inpatient setting [ ]d) Hypercarbia (PCO2 greater than 40 mm Hg (5.3 kPa))-induced respiratory acidosis (pH less than 7.35) that persists despite outpatient and observation care treatment [ ]e) Supplemental oxygen or respiratory treatments for over 24 hours that are performable only in acute inpatient setting [ ]f) Chest tube placement with active evacuation (e.g., suction, drainage) (5) [ ]g) Other condition, treatment or monitoring requiring inpatient admission [ ]III. Planned invasive surgical or diagnostic procedures requiring acute- care hospitalization [ ]IV. Acute respiratory failure (e.g., uncompensated hypercarbia, severe hypoxemia) [ ]V. Severe comorbid condition (e.g., severe steroid myopathy, acute vertebral fracture) that has acutely worsened pulmonary function [ ]. Confusion state, lethargy, obtundation, stupor or coma Extended stay beyond goal length of stay may be needed for (31)(32): [ ]a ) Respiratory Failure. [ ]b) Severe or persisting hypoxemia or hypercarbia [ ]c) Severe or persistent dyspnea [ ]d) Comorbidities (e.g. chronic heart failure, atrial fibrillation with rapid response, pneumonia) [ ]e) Malnutrition The original [facility] content created by [facility] has been revised. The portions of the content which have been revised are identified through the use of italic text or in bold, and [facility] has neither reviewed nor approved the modified material. All other unmodified content is copyright [facility]. Please see references footnoted in the original [facility] edition 2016 Admission Criteria Met: Yes
--- NOTE | 2016-10-17 23:14 | History and Physical Report ---
History of Present Illness Date of examination: 10/17/16 Chief complaint: Patient was referred from his PCP for abnormal CXR History of present illness: 85-year-old male presents to the emergency department by EMS from [facility] with the complaint of abnormal chest imaging and a request for further evaluation by the primary care doctor, which is listed as either Dr. Akshat Wagner or Dr. Ernesto Puente. The patient himself says "I don' t know why was sent here." The patient has a history of COPD, pleural effusions , colon cancer. Patient is oxygen dependent. He also has a history of sick sinus syndrome, anxiety, vascular dementia. His PCP asked to be evaluated by CT chest which was ordered by ER physician. Patient denied any complaints. REVIEW OF SYSTEMS: GENERAL: no weight change, no fatigue, no fever HEAD: no head ache EYES: no blurry vision, no acute visual loss EARS: no hearing loss, no discharge, no earache NOSE: no stuffiness, no sneezing, no discharge MOUTH, THROAT AND NECK: no bleeding gums, no sore throat, no swollen neck CARDIAC: no palpitations, no dyspnea on exertion, no orthopnea, no PND, no edema , no chest pain RESPIRATORY: no shortness of breath, no wheeze, no cough, no sputum, no hemoptysis, no asthma GI: no decreased appetite, no nausea, no vomiting, no dysphagia, no diarrhea, no constipation, no abdominal pain URINARY: no change in frequency, no urgency, no polyuria, no hematuria, no incontinence MUSCULOSKELETAL: no muscle weakness, no pain, no joint stiffness NEUROLOGIC: no loss of sensation/numbness, no tingling, no tremors, no weakness/ paralysis HEMATOLOGIC: no anemia, no easy bruising SKIN: no rashes ENDOCRINE: no heat/cold intolerance, no polyuria, no polydipsia, no thyroid problems, no diabetes PSYCHIATRIC: no anxiety, no depression, no suicidal ideations Past History Past Medical History: COPD, seizures Past Surgical History: No surgical history Social history: full code. denies: smoking, alcohol abuse, prescription drug abuse, IV drug use Family history: denies: CAD, cancer, stroke Medications and Allergies Allergies Allergy/AdvReac Type Severity Reaction Status Date / Time No Known Allergies Allergy Unverified 08/06/16 16:22 Home Medications Medication Instructions Recorded Confirmed Last Taken Type Calcium Carbonate/Vitamin D3 1 tab PO TID 08/06/16 08/06/16 Unknown History [Calcium 500 + D Tablet] Depakote ER 125 mg PO BID 08/06/16 08/06/16 Unknown History Fluticasone/Vilanterol [Breo 2 puff INHALATION DAILY 08/06/16 08/06/16 Unknown History Ellipta 100-25 Mcg INH] Memantine HCl [Namenda] 10 mg PO BID 08/06/16 08/06/16 Unknown History Mirtazapine 15 mg PO QHS 08/06/16 08/06/16 Unknown History Arformoterol Nebu [Brovana Nebu] 15 mcg IH Q12HRT ml 08/10/16 Unknown Rx Ipratropium/Albuterol Sulfate 1 ampul IH Q6HRT ampul.neb 08/10/16 Unknown Rx [Duoneb 0.5 mg-3 mg/3 ml Soln] LORazepam [Ativan] 1 tab PO Q8H PRN #3 tablet 08/10/16 Unknown Rx Levofloxacin [Levaquin TAB] 500 mg PO Q24HR #5 tablet 08/10/16 Unknown Rx Lisinopril [Zestril TAB] 5 mg PO QDAY #30 tablet 08/10/16 Unknown Rx Prednisone [predniSONE 5 mg (6-Day 5 mg PO .TAPER #1 tab.ds.pk 08/10/16 Unknown Rx Pack, 21 Tabs)] Exam - Physical Exam Narrative exam: Not in cardiopulmonary distress. The patient is emaciated. Vital signs as documented. Head exam is unremarkable. No scleral icterus . Neck is without jugular venous distension, thyromegaly, or carotid bruits. Lungs are clear to auscultation. Cardiac exam reveals regular rate and Rhythm. First and second heart sounds normal. No murmurs, rubs or gallops. Abdominal exam reveals normal bowel sounds, no masses, no organomegaly and no aortic enlargement. Extremities are nonedematous and both femoral and pedal pulses are normal. [employer]: Alert and oriented 3. No focal weakness. - Constitutional Vitals: Temp Pulse Resp BP Pulse Ox 97.9 F 77 15 115/41 96 10/17/16 13:46 10/17/16 21:00 10/17/16 21:00 10/17/16 16:00 10/17/16 16:00 Results - Labs CBC & Chem 7: 10/17/16 13:55 10/17/16 13:55 Labs: Laboratory Last Values WBC 10.5 K/mm3 (4.5-11.0) 10/17/16 13:55 RBC 4.75 M/mm3 (3.65-5.03) 10/17/16 13:55 Hgb 14.4 gm/dl (11.8-15.2) 10/17/16 13:55 Hct 44.6 % (35.5-45.6) 10/17/16 13:55 MCV 94 fl (84-94) 10/17/16 13:55 MCH 30 pg (28-32) 10/17/16 13:55 MCHC 32 % (32-34) 10/17/16 13:55 RDW 15.2 % (13.2-15.2) 10/17/16 13:55 Plt Count 306 K/mm3 (140-440) 10/17/16 13:55 Lymph % (Auto) 7.8 % (13.4-35.0) L 10/17/16 13:55 [place] % (Auto) 8.5 % (0.0-7.3) H 10/17/16 13:55 Eos % (Auto) 0.4 % (0.0-4.3) 10/17/16 13:55 Baso % (Auto) 0.7 % (0.0-1.8) 10/17/16 13:55 Lymph # 0.8 K/mm3 (1.2-5.4) L 10/17/16 13:55 [place] # 0.9 K/mm3 (0.0-0.8) H 10/17/16 13:55 Eos # 0.0 K/mm3 (0.0-0.4) 10/17/16 13:55 Baso # 0.1 K/mm3 (0.0-0.1) 10/17/16 13:55 Seg Neutrophils % 82.6 % (40.0-70.0) H 10/17/16 13:55 Seg Neutrophils # 8.7 K/mm3 (1.8-7.7) H 10/17/16 13:55 PT 15.9 Sec. (12.2-14.9) H 10/17/16 13:55 INR 1.28 (0.87-1.13) H 10/17/16 13:55 APTT 25.6 Sec. (24.2-36.6) 10/17/16 13:55 Sodium 148 mmol/L (137-145) H 10/17/16 13:55 Potassium 4.3 mmol/L (3.6-5.0) 10/17/16 13:55 Chloride 106.8 mmol/L (98-107) 10/17/16 13:55 Carbon Dioxide 28 mmol/L (22-30) 10/17/16 13:55 Anion Gap 18 mmol/L 10/17/16 13:55 BUN 23 mg/dL (9-20) H 10/17/16 13:55 Creatinine 1.0 mg/dL (0.8-1.5) 10/17/16 13:55 Estimated GFR > 60 ml/min 10/17/16 13:55 BUN/Creatinine Ratio 23.00 % 10/17/16 13:55 Glucose 101 mg/dL (75-100) H 10/17/16 13:55 Calcium 10.0 mg/dL (8.4-10.2) 10/17/16 13:55 Total Bilirubin 0.8 mg/dL (0.1-1.2) 10/17/16 13:55 Direct Bilirubin 0.2 mg/dL (0-0.2) 10/17/16 13:55 Indirect Bilirubin 0.6 mg/dL 10/17/16 13:55 AST 17 units/L (5-40) 10/17/16 13:55 ALT 10 units/L (7-56) 10/17/16 13:55 Alkaline Phosphatase 97 units/L (35-129) 10/17/16 13:55 Total Creatine Kinase 17 units/L (55-170) L 10/17/16 13:55 CK-MB (CK-2) < 1.0 ng/mL (0.0-4.0) 10/17/16 13:55 CK-MB (CK-2) Rel Index 5.8 (0-4) H 10/17/16 13:55 Troponin T < 0.010 ng/mL (0.00-0.029) 10/17/16 13:55 NT-Pro-B Natriuret Pep 633.3 pg/mL (0-900) 10/17/16 13:55 Total Protein 7.7 g/dL (6.3-8.2) 10/17/16 13:55 Albumin 3.7 g/dL (3.9-5) L 10/17/16 13:55 Albumin/Globulin Ratio 0.9 % 10/17/16 13:55 TSH 1.230 mlU/mL (0.270-4.200) 10/17/16 14:07 Free T4 1.64 ng/dL (0.76-1.46) H 10/17/16 14:07 - Imaging and Cardiology Chest x-ray: image reviewed (right lower lobe atelectasis) Assessment and Plan Assessment and plan: COPD - Breathing treatment - Oxygen support Abnormal chest x-ray - CT is pending Malnutrition - Dietary consult Dementia - Continue home medication Prophylaxis - Heparin Disposition - Admitted to the medical floor - Possible discharge tomorrow after the CT-guided Advance Directives: Yes (full code) VTE prophylaxis?: Chemical Plan of care discussed with patient/family: Yes
[2016-10-18] MEDS ORDERED: ATIVAN PO PRN (00:11)
[2016-10-18] MEDS: BROVANA NEBU IH SCH ×2 (07:11→20:37)
[2016-10-18] MEDS: PULMICORT IH SCH ×2 (07:11→20:37)
[2016-10-18] MEDS: DUONEB 0.5 MG-3 MG/3 ML SOLN IH SCH ×4 (07:12→20:37)
[2016-10-18] MEDS: OYSCO D 500 MG-200 UNIT PO SCH ×2 (08:00→13:39)
[2016-10-18] MEDS ORDERED: VITAMIN D3 PO SCH (08:00)
[2016-10-18] MEDS ORDERED: CALCIUM CARBONATE PO SCH (08:00)
[2016-10-18] MEDS: NAMENDA XR PO SCH (09:24)
[2016-10-18] MEDS: ZESTRIL PO SCH (09:25)
[2016-10-18] MEDS ORDERED: VILANTEROL INHALATION SCH (10:00)
[2016-10-18] MEDS ORDERED: NON-FORMULARY (Memantine Hcl [Namenda] 10 MG) PO SCH (10:00)
[2016-10-18] MEDS ORDERED: FLUTICASONE INHALATION SCH (10:00)
[2016-10-18] MEDS ORDERED: DEPAKOTE 125 MG PO SCH (10:00)
[2016-10-18 13:54] LABS: ISTAT Base Excess 1; ISTAT DEVICE 0; ISTAT HCO3 24.5; ISTAT PCO2 34.3 (35-45); ISTAT PH 7.461 (7.35-7.45); ISTAT PO2 56 (80-105); ISTAT SO2 91; ISTAT TCO2 26
--- NOTE | 2016-10-18 17:38 | Progress Note ---
Assessment and Plan Assessment and plan: 85-year-old male presents to the emergency department by EMS from [facility] with the complaint of abnormal chest imaging and a request for further evaluation by the primary care doctor, which is listed as either Dr. Akshat Wagner or Dr. Ernesto Puente. The patient himself says "I don' t know why was sent here." The patient has a history of COPD, pleural effusions , colon cancer. Patient is oxygen dependent. He also has a history of sick sinus syndrome, anxiety, vascular dementia. His PCP asked to be evaluated by CT chest which was ordered by ER physician. Patient denied any complaints. * Acute on chronic hypoxic respiratory distress * COPD * Malnutrition * Dementia PLAN * Continue nebulizer treatments * Add steriods * will need oxygen re-evaluation by discharge * CT chest pending * Dietary consult * DVT/GI prophylaxis History Interval history: Patient seen and examined this morning in no acute distress but hypoxic on sat. still with cough Denies any chest pain, nausea, vomiting, diarrhea No fever noted blood pressure controlled No adverse events reported to me by nursing staff Hospitalist Physical - Physical exam Narrative exam: VITAL SIGNS: Reviewed. GENERAL: The patient appeared well nourished and normally developed. Vital signs as documented. HEAD: No signs of head trauma. EYES: Pupils are equal. Extraocular motions intact. EARS: Hearing grossly intact. MOUTH: Oropharynx is normal. NECK: No adenopathy, no JVD. CHEST: Chest with crackles breath sounds bilaterally. CARDIAC: Regular rate and rhythm. S1 and S2, without murmurs, gallops, or rubs. VASCULAR: No Edema. Peripheral pulses normal and equal in all extremities. ABDOMEN: Soft, without detectable tenderness. No sign of distention. No rebound or guarding, and no masses palpated. Bowel Sounds normal. MUSCULOSKELETAL: Good range of motion of all major joints. Extremities without clubbing, cyanosis or edema. NEUROLOGIC EXAM: Alert and oriented x 3. No focal sensory or strength deficits. Speech normal. Follows commands. PSYCHIATRIC: Mood normal. SKIN: age appropriate blemish and wrinkles - Constitutional Vitals: Temp Pulse Resp BP Pulse Ox 97.4 F L 62 16 120/57 94 10/18/16 08:00 10/18/16 16:44 10/18/16 16:44 10/18/16 09:25 10/18/16 08:00 Results - Labs CBC & Chem 7: 10/17/16 13:55 10/17/16 13:55 Labs: Laboratory Last Values WBC 10.5 K/mm3 (4.5-11.0) 10/17/16 13:55 RBC 4.75 M/mm3 (3.65-5.03) 10/17/16 13:55 Hgb 14.4 gm/dl (11.8-15.2) 10/17/16 13:55 Hct 44.6 % (35.5-45.6) 10/17/16 13:55 MCV 94 fl (84-94) 10/17/16 13:55 MCH 30 pg (28-32) 10/17/16 13:55 MCHC 32 % (32-34) 10/17/16 13:55 RDW 15.2 % (13.2-15.2) 10/17/16 13:55 Plt Count 306 K/mm3 (140-440) 10/17/16 13:55 Lymph % (Auto) 7.8 % (13.4-35.0) L 10/17/16 13:55 [place] % (Auto) 8.5 % (0.0-7.3) H 10/17/16 13:55 Eos % (Auto) 0.4 % (0.0-4.3) 10/17/16 13:55 Baso % (Auto) 0.7 % (0.0-1.8) 10/17/16 13:55 Lymph # 0.8 K/mm3 (1.2-5.4) L 10/17/16 13:55 [place] # 0.9 K/mm3 (0.0-0.8) H 10/17/16 13:55 Eos # 0.0 K/mm3 (0.0-0.4) 10/17/16 13:55 Baso # 0.1 K/mm3 (0.0-0.1) 10/17/16 13:55 Seg Neutrophils % 82.6 % (40.0-70.0) H 10/17/16 13:55 Seg Neutrophils # 8.7 K/mm3 (1.8-7.7) H 10/17/16 13:55 PT 15.9 Sec. (12.2-14.9) H 10/17/16 13:55 INR 1.28 (0.87-1.13) H 10/17/16 13:55 APTT 25.6 Sec. (24.2-36.6) 10/17/16 13:55 POC ABG pH 7.461 (7.35-7.45) H 10/18/16 13:50 POC ABG pCO2 34.3 (35-45) L 10/18/16 13:50 POC ABG pO2 56 (80-105) L 10/18/16 13:50 POC ABG HCO3 24.5 10/18/16 13:50 POC ABG Total CO2 26 10/18/16 13:50 POC ABG O2 Sat 91 10/18/16 13:50 POC ABG Base Excess 1 10/18/16 13:50 FiO2 21 % 10/18/16 13:50 Sodium 148 mmol/L (137-145) H 10/17/16 13:55 Potassium 4.3 mmol/L (3.6-5.0) 10/17/16 13:55 Chloride 106.8 mmol/L (98-107) 10/17/16 13:55 Carbon Dioxide 28 mmol/L (22-30) 10/17/16 13:55 Anion Gap 18 mmol/L 10/17/16 13:55 BUN 23 mg/dL (9-20) H 10/17/16 13:55 Creatinine 1.0 mg/dL (0.8-1.5) 10/17/16 13:55 Estimated GFR > 60 ml/min 10/17/16 13:55 BUN/Creatinine Ratio 23.00 % 10/17/16 13:55 Glucose 101 mg/dL (75-100) H 10/17/16 13:55 Calcium 10.0 mg/dL (8.4-10.2) 10/17/16 13:55 Total Bilirubin 0.8 mg/dL (0.1-1.2) 10/17/16 13:55 Direct Bilirubin 0.2 mg/dL (0-0.2) 10/17/16 13:55 Indirect Bilirubin 0.6 mg/dL 10/17/16 13:55 AST 17 units/L (5-40) 10/17/16 13:55 ALT 10 units/L (7-56) 10/17/16 13:55 Alkaline Phosphatase 97 units/L (35-129) 10/17/16 13:55 Total Creatine Kinase 17 units/L (55-170) L 10/17/16 13:55 CK-MB (CK-2) < 1.0 ng/mL (0.0-4.0) 10/17/16 13:55 CK-MB (CK-2) Rel Index 5.8 (0-4) H 10/17/16 13:55 Troponin T < 0.010 ng/mL (0.00-0.029) 10/17/16 13:55 NT-Pro-B Natriuret Pep 633.3 pg/mL (0-900) 10/17/16 13:55 Total Protein 7.7 g/dL (6.3-8.2) 10/17/16 13:55 Albumin 3.7 g/dL (3.9-5) L 10/17/16 13:55 Albumin/Globulin Ratio 0.9 % 10/17/16 13:55 TSH 1.230 mlU/mL (0.270-4.200) 10/17/16 14:07 Free T4 1.64 ng/dL (0.76-1.46) H 10/17/16 14:07
--- NOTE | 2016-10-18 17:49 | Cat Scan Report ---
FINAL REPORT EXAM: CT CHEST WO CON HISTORY: shortness of breath TECHNIQUE: Noncontrast serial axial images through the chest with coronal and sagittal reconstruction PRIORS: None. FINDINGS: There is a large right pleural effusion. There atelectasis in the right lung base. There is patchy opacity in the posterior aspect of right upper lobe and right lower lobe. There atelectasis in the dependent portion of left lung. There is a calcified granuloma in the left lower lobe. Calcified pleural plaques are seen bilaterally. Emphysematous changes are noted bilaterally. There is scarring in the lung apices. Nodular foci are seen in the apical regions, bilaterally. The larger is on the left side, and measures approximately 2.3 x 0.7 centimeters in axial dimension. Coronary artery calcifications are noted. The heart measures approximately 11.6 centimeters in length. There is 17 millimeter cyst in the superior pole left kidney. There is a 14 millimeter cyst in the anterior aspect of the right kidney. Cholelithiasis is noted. Degenerative changes are seen in the spine. Chronic appearing compression deformity is seen in the L1 vertebral body. There are multiple healed right rib fractures. IMPRESSION: 1. Calcified pleural plaques are seen bilaterally. This may indicate prior asbestos exposure. 2. Large right pleural effusion. 3. There is atelectasis in the right lung bases. 4. Patchy opacity in the posterior aspect of the right upper lobe and right lower lobe may be secondary to infiltrate and or atelectasis. 5. There atelectasis in the dependent portion of the left lung. 6. Emphysematous changes are noted. 7. There scarring in the lung apices. Nodular foci are seen in the apical regions, bilaterally. The larger is on the left side. This may be related to scarring. There are currently no studies available for direct comparison. Other neoplastic process is not excluded. Follow-up exam can be performed in 3 months to assure stability.
[2016-10-19] MEDS: REMERON PO SCH ×2 (00:23→23:04)
[2016-10-19] MEDS: OYSCO D 500 MG-200 UNIT PO SCH ×4 (00:45→20:49)
[2016-10-19] MEDS: PULMICORT IH SCH ×2 (07:36→20:26)
[2016-10-19] MEDS: BROVANA NEBU IH SCH ×2 (07:36→20:26)
[2016-10-19] MEDS: DUONEB 0.5 MG-3 MG/3 ML SOLN IH SCH ×4 (07:36→20:28)
[2016-10-19] MEDS: DELTASONE PO SCH (11:00)
[2016-10-19] MEDS: ZESTRIL PO SCH (11:00)
[2016-10-19] MEDS: NAMENDA XR PO SCH (11:00)
--- NOTE | 2016-10-19 13:43 | Query- Nutrition ---
Brenda Castillo____Rizwana Date:____10/19/16 Mail Censor/CDS: Anthony Rivera Phone#:[phone] Exercise your independent professional judgment when responding to query. Questions asked do not imply a particular answer is desired or expected. We greatly appreciate your clarification on this issue. Clinical Documentation States: 85 year old male was admitted on 10/17/16. The progress note (10/18/16) states " Assessment and plan: Malnutrition " Clinical Findings Show: BMI: 17 Please select the most appropriate option 3 [] Mild Malnutrition [] Mild - Moderate Malnutrition [] Moderate - Severe Malnutrition [x] Severe Malnutrition Serum Albumin 2.8 to 3.4 g/dl or Pre-albumin 5 to 17 mg/dl1,2 Inadequate nutritional intake1,2,3,4 NPO > 5 days Weight loss: 5% in 1 month or 7.5% in 3 months or 10% in 6 months1, 3,4 BMI 16 to 18.4 or Weight <90% of ideal body weight1,2,3,4 Serum Albumin < 2.8 g/ dl1,2 Lymphocytes < 1500/ L2 Inadequate nutritional intake3, high stress e.g. major trauma, sepsis,pancreatitis, luna etc. Decubitus ulcers1,2, , skin breakdown2, easy hair pluckability2 Weight <80% standard for height2 Triceps skin fold <3 mm2 Mid-arm muscle circumference <15 cm2 Creatinine-height index <60% standard2 [ ] Cachexia [ ] Emaciated w/Malnutrition [ ] Other: [ ] Unable to determine [ ] Comment/Explanation: Present on Admission: [ x] Yes (Y) [ ] Clinically undeterminable (W) [ ] No (N) Please also document response in your Progress Notes and/or Discharge Summary and indicate if the condition was present on admission. MTDD
--- NOTE | 2016-10-19 17:59 | Progress Note ---
Assessment and Plan Assessment and plan: 85-year-old male presents to the emergency department by EMS from [facility] with the complaint of abnormal chest imaging and a request for further evaluation by the primary care doctor, which is listed as either Dr. Akshat Wagner or Dr. Ernesto Puente. The patient himself says "I don' t know why was sent here." The patient has a history of COPD, pleural effusions , colon cancer. Patient is oxygen dependent. He also has a history of sick sinus syndrome, anxiety, vascular dementia. His PCP asked to be evaluated by CT chest which was ordered by ER physician. Patient denied any complaints. * Acute on chronic hypoxic respiratory distress * Large right sided lateral effusion * COPD * Malnutrition * Dementia PLAN * Continue nebulizer treatments * Continue tapering steroids of discussed with the patient didn't need for thoracentesis for diagnostic and therapeutic measures the patient was okay with it earlier on in the morning but later in the evening refused. Considering his dementia I will speak to family to see if they will give consent to this. If no consent is obtained I will recommend possible palliative care. * will need oxygen re-evaluation by discharge * Dietary consult * DVT/GI prophylaxis History Interval history: Patient seen and examined this morning in no acute distress but hypoxic on sat. still with cough Denies any chest pain, nausea, vomiting, diarrhea No fever noted blood pressure controlled No adverse events reported to me by nursing staff Hospitalist Physical - Physical exam Narrative exam: VITAL SIGNS: Reviewed. GENERAL: The patient appeared well nourished and normally developed. Vital signs as documented. HEAD: No signs of head trauma. EYES: Pupils are equal. Extraocular motions intact. EARS: Hearing grossly intact. MOUTH: Oropharynx is normal. NECK: No adenopathy, no JVD. CHEST: Chest with crackles breath sounds bilaterally. CARDIAC: Regular rate and rhythm. S1 and S2, without murmurs, gallops, or rubs. VASCULAR: No Edema. Peripheral pulses normal and equal in all extremities. ABDOMEN: Soft, without detectable tenderness. No sign of distention. No rebound or guarding, and no masses palpated. Bowel Sounds normal. MUSCULOSKELETAL: Good range of motion of all major joints. Extremities without clubbing, cyanosis or edema. NEUROLOGIC EXAM: Alert and oriented x 3. No focal sensory or strength deficits. Speech normal. Follows commands. PSYCHIATRIC: Mood normal. SKIN: age appropriate blemish and wrinkles - Constitutional Vitals: Temp Pulse Resp BP Pulse Ox 97.7 F 48 L 18 97/55 96 10/19/16 08:00 10/19/16 16:55 10/19/16 16:55 10/19/16 11:00 10/19/16 08:00 Results - Labs CBC & Chem 7: 10/17/16 13:55 10/17/16 13:55 Labs: Laboratory Last Values WBC 10.5 K/mm3 (4.5-11.0) 10/17/16 13:55 RBC 4.75 M/mm3 (3.65-5.03) 10/17/16 13:55 Hgb 14.4 gm/dl (11.8-15.2) 10/17/16 13:55 Hct 44.6 % (35.5-45.6) 10/17/16 13:55 MCV 94 fl (84-94) 10/17/16 13:55 MCH 30 pg (28-32) 10/17/16 13:55 MCHC 32 % (32-34) 10/17/16 13:55 RDW 15.2 % (13.2-15.2) 10/17/16 13:55 Plt Count 306 K/mm3 (140-440) 10/17/16 13:55 Lymph % (Auto) 7.8 % (13.4-35.0) L 10/17/16 13:55 [place] % (Auto) 8.5 % (0.0-7.3) H 10/17/16 13:55 Eos % (Auto) 0.4 % (0.0-4.3) 10/17/16 13:55 Baso % (Auto) 0.7 % (0.0-1.8) 10/17/16 13:55 Lymph # 0.8 K/mm3 (1.2-5.4) L 10/17/16 13:55 [place] # 0.9 K/mm3 (0.0-0.8) H 10/17/16 13:55 Eos # 0.0 K/mm3 (0.0-0.4) 10/17/16 13:55 Baso # 0.1 K/mm3 (0.0-0.1) 10/17/16 13:55 Seg Neutrophils % 82.6 % (40.0-70.0) H 10/17/16 13:55 Seg Neutrophils # 8.7 K/mm3 (1.8-7.7) H 10/17/16 13:55 PT 15.9 Sec. (12.2-14.9) H 10/17/16 13:55 INR 1.28 (0.87-1.13) H 10/17/16 13:55 APTT 25.6 Sec. (24.2-36.6) 10/17/16 13:55 POC ABG pH 7.461 (7.35-7.45) H 10/18/16 13:50 POC ABG pCO2 34.3 (35-45) L 10/18/16 13:50 POC ABG pO2 56 (80-105) L 10/18/16 13:50 POC ABG HCO3 24.5 10/18/16 13:50 POC ABG Total CO2 26 10/18/16 13:50 POC ABG O2 Sat 91 10/18/16 13:50 POC ABG Base Excess 1 10/18/16 13:50 FiO2 21 % 10/18/16 13:50 Sodium 148 mmol/L (137-145) H 10/17/16 13:55 Potassium 4.3 mmol/L (3.6-5.0) 10/17/16 13:55 Chloride 106.8 mmol/L (98-107) 10/17/16 13:55 Carbon Dioxide 28 mmol/L (22-30) 10/17/16 13:55 Anion Gap 18 mmol/L 10/17/16 13:55 BUN 23 mg/dL (9-20) H 10/17/16 13:55 Creatinine 1.0 mg/dL (0.8-1.5) 10/17/16 13:55 Estimated GFR > 60 ml/min 10/17/16 13:55 BUN/Creatinine Ratio 23.00 % 10/17/16 13:55 Glucose 101 mg/dL (75-100) H 10/17/16 13:55 Calcium 10.0 mg/dL (8.4-10.2) 10/17/16 13:55 Total Bilirubin 0.8 mg/dL (0.1-1.2) 10/17/16 13:55 Direct Bilirubin 0.2 mg/dL (0-0.2) 10/17/16 13:55 Indirect Bilirubin 0.6 mg/dL 10/17/16 13:55 AST 17 units/L (5-40) 10/17/16 13:55 ALT 10 units/L (7-56) 10/17/16 13:55 Alkaline Phosphatase 97 units/L (35-129) 10/17/16 13:55 Total Creatine Kinase 17 units/L (55-170) L 10/17/16 13:55 CK-MB (CK-2) < 1.0 ng/mL (0.0-4.0) 10/17/16 13:55 CK-MB (CK-2) Rel Index 5.8 (0-4) H 10/17/16 13:55 Troponin T < 0.010 ng/mL (0.00-0.029) 10/17/16 13:55 NT-Pro-B Natriuret Pep 633.3 pg/mL (0-900) 10/17/16 13:55 Total Protein 7.7 g/dL (6.3-8.2) 10/17/16 13:55 Albumin 3.7 g/dL (3.9-5) L 10/17/16 13:55 Albumin/Globulin Ratio 0.9 % 10/17/16 13:55 TSH 1.230 mlU/mL (0.270-4.200) 10/17/16 14:07 Free T4 1.64 ng/dL (0.76-1.46) H 10/17/16 14:07 - Imaging and Cardiology CT scan - chest: image reviewed (large right-sided pleural effusion)
[2016-10-20] MEDS: BROVANA NEBU IH SCH (08:00)
[2016-10-20] MEDS: PULMICORT IH SCH (08:00)
[2016-10-20] MEDS: DUONEB 0.5 MG-3 MG/3 ML SOLN IH SCH (08:12)
[2016-10-20] MEDS: OYSCO D 500 MG-200 UNIT PO SCH (08:51)
--- NOTE | 2016-10-20 08:53 | Discharge Summary ---
Providers - Providers Date of Admission: 10/17/16 23:09 Date of discharge: 10/20/16 Attending physician: NELSON CLAROS MD 10/18/16 00:20 Consult to Dietitian/Nutrition [CONS] Routine Physician Instructions: Reason For Exam: Reason for Consult: Malnutrition Primary care physician: BARREL LOADER Hospitalization Reason for admission: abnormal chest x-ray Condition: Stable Hospital course: 85-year-old male presents to the emergency department by EMS from [facility] with the complaint of abnormal chest imaging and a request for further evaluation by the primary care doctor, which is listed as either Dr. Akshat Wagner or Dr. Ernesto Puente. The patient himself says "I don' t know why was sent here." The patient has a history of COPD, pleural effusions , colon cancer. Patient is oxygen dependent. He also has a history of sick sinus syndrome, anxiety, vascular dementia. His PCP asked to be evaluated by CT chest which was ordered by ER physician. Patient denied any complaints. Patient was noted to have significant large pleural effusion on the right refused to have this drained. We did speak to the sister who stated that she would rather just keep him comfortable. We will discharge to [facility] facility back and would need some oxygen. He has not been agreed to wear his oxygen while he was here. He spells the at this time breathing okay to leave everything the way through this. Discharge diagnosis * Acute on chronic hypoxic respiratory distress * Large right sided lateral effusion * COPD * Malnutrition * Dementia Disposition: DC/TX SNF W [facility] CERT Time spent for discharge: 35 MINS Core Measure Documentation - Palliative Care Palliative Care/ Comfort Measures: Palliative Care/Comfort Measures - Core Measures Any of the following diagnoses?: none - VTE Discharge Requirements Deep Vein Thrombosis/Pulmonary Embolism Present on Admission: No Exam - Physical Exam Narrative exam: VITAL SIGNS: Reviewed. GENERAL: The patient appeared well nourished and normally developed. Vital signs as documented. HEAD: No signs of head trauma. EYES: Pupils are equal. Extraocular motions intact. EARS: Hearing grossly intact. MOUTH: Oropharynx is normal. NECK: No adenopathy, no JVD. CHEST: Chest with crackles breath sounds bilaterally. CARDIAC: Regular rate and rhythm. S1 and S2, without murmurs, gallops, or rubs. VASCULAR: No Edema. Peripheral pulses normal and equal in all extremities. ABDOMEN: Soft, without detectable tenderness. No sign of distention. No rebound or guarding, and no masses palpated. Bowel Sounds normal. MUSCULOSKELETAL: Good range of motion of all major joints. Extremities without clubbing, cyanosis or edema. NEUROLOGIC EXAM: Alert and oriented x 3. No focal sensory or strength deficits. Speech normal. Follows commands. PSYCHIATRIC: Mood normal. SKIN: age appropriate blemish and wrinkles - Constitutional Vitals: Temp Pulse Resp BP Pulse Ox 97.7 F 50 L 16 97/55 96 10/19/16 08:00 10/20/16 08:15 10/20/16 08:15 10/19/16 11:00 10/19/16 08:00 Plan Activity: advance as tolerated, fall precautions Diet: low salt Special Instructions: record daily BP diary, physical therapy, occupational therapy Durable Medical Equipment Needed Upon Discharge: Oxygen (2LPM ROUND THE CLOCK) Follow up with: PRIMARY CARE, [Primary Care Provider] - 3-5 Days Prescriptions: Furosemide [Lasix] 20 mg PO QDAY #20 tablet
[2016-10-20] MEDS: ZESTRIL PO SCH (09:25)
[2016-10-20] MEDS: DELTASONE PO SCH (09:26)
[2016-10-20 09:27] VITALS: BP 100/44
--- NOTE | 2016-10-26 07:47 | Query- Dyspnea ---
Brenda Castillo Rizwana Date:____10/26/16 Wellness Assistant/CDS: Anthony / Rosendo Phone#:___[phone] Exercise your independent professional judgment when responding to query. Questions asked do not imply a particular answer is desired or expected. We greatly appreciate your clarification on this issue. Clinical Documentation States: 85 year old male was admitted on 10/17/16. The progress notes (10/19/16) states " from [facility] with the complaint of abnormal chest imaging. The patient has a history of COPD, pleural effusions, colon cancer. Acute on chronic hypoxic respiratory distress " Please clarify if the patient had any of the following conditions based on the above clinical findings: [ ] Respiratory Failure [ ] Acute [ x] Acute on Chronic [ ] Chronic [ ] Respiratory failure due to trauma [ ] Acute Respiratory Distress Syndrome [ ] Other: [ ] Unable to determine [ ] Comment/Explanation: Present on Admission: [y ] Yes (Y) [ ] Clinically undeterminable (W) [ ] No (N) Please also document response in your Progress Notes and/or Discharge Summary and indicate if the condition was present on admission. LAD
== END 2016-10-20 10:36 | DRG 189 ==
LOC: ED 13:21 → CC2 23:09
PROVIDERS: ADMIT Internal Medicine; ATTEND Internal Medicine
PROC: 4A03XR1 Measurement of Arterial Saturation, Peripheral, External Approach (ICD-10-PCS; principal; 2016-10-18)
DX: J96.21 Acute and chronic respiratory failure with hypoxia (principal); E43 Unspecified severe protein-calorie malnutrition; Z68.1 Body mass index [BMI] 19.9 or less, adult; J44.1 Chronic obstructive pulmonary disease with (acute) exacerbation; F03.90 Unspecified dementia, unspecified severity, without behavioral disturbance, psychotic disturbance, mood disturbance, and anxiety; F32.9 Major depressive disorder, single episode, unspecified; I10 Essential (primary) hypertension; Z85.038 Personal history of other malignant neoplasm of large intestine; Z99.81 Dependence on supplemental oxygen; Z87.891 Personal history of nicotine dependence; Z79.899 Other long term (current) drug therapy
CPT/HCPCS: 36415; 36600; 71010; 71250; 80048; 80074; 82550; 82553; 82803; 83880; 84439; 84443; 84484; 85025; 85610; 85730; 93005; 93010; 94640; J2920; J2930; J7030; J7512